=== PATIENT | female | born 1995 | race Hispanic/Latino ===

== ENCOUNTER 2020-11-26 16:19 | Emergency (ER) | payer SELFPAY ==
--- OUTSIDE RECORDS SUMMARY | 2020-11-26 16:21 | XMS REPORT | Continuity of Care Document ---
:1995 Author Organization [facility] t Address [address] [place] [address] Care Team Providers Name Role Phone Stone Rojo DO Attending Clinician Lenka MEZA L Attending Clinician Payers Payer Name Policy Type Policy Number Effective Date Expiration Date S ource Problems This patient has no known problems. Allergies, Adverse Reactions, Alerts Allergy Allergy Status Severity Reaction(s) Onset Inactive Treating Comm ents Source Name Type Date Date Clinician No Known DA Active U [facility]- [facility] No Known DA Active U 2015-06 [facility] 0-30 [facility] 00:00: e 00 [facility] Center Medications This patient has no known medications. Procedures This patient has no known procedures. Encounters Start End Encounter Admission Attending Care Care Encounter Source Date/Time Date/Time Type Type Clinicians Facility Department ID 2020-09-08 2020-09-08 Patient DAR Rojo [id number] 00:00:00 00:00:00 Outreach Carmelo BARR [id number] Stone [facility] [id number] BENJAMIN [id number] 2020-03-13 2020-03-13 Office Adum, [facility] [id number] 13:59:31 15:02:02 Visit Carie Alfaro [id number] Dionicio [id number] Najma [id number] nal [address] Building Results Test Description Test Time Test Comments Results Result Comments Source URINALYSIS COMPLETE 2018-12-11 17:34:00 Test Item Value Reference Range Interpretation Comme nts UA COLOR (test code = COLU) YELLOW YELLOW UA APPEARANCE (test code = APPU) CLEAR CLEAR UA GLUCOSE DIPSTICK (test code = DGLUU) NEGATIVE mg/dL NEGATIVE UA BILIRUBIN DIPSTICK (test code = BILU) NEGATIVE mg/dL NEGATIVE UA KETONE DIPSTICK (test code = KETU) 10 (1+) mg/dL NEGATIVE A UA SPECIFIC GRAVITY (test code = SGU) 1.032 1.001-1.035 UA BLOOD DIPSTICK (test code = POLI) 0.03 mg/dL (Trace) mg/dL NEGATI VE A UA PH DIPSTICK (test code = BRENNAN) 6.0 5.0-8.0 UA PROTEIN DIPSTICK (test code = PROU) 20 (Trace) mg/dL NEGATIVE A UA UROBILINIOGEN DIPSTICK (test code = URO) Normal mg/dL NEGATIVE UA NITRITE DIPSTICK (test code = AMENA) NEGATIVE NEGATIVE UA LEUKOCYTE ESTERASE W REFLEX (test code = NEGATIVE Phil/uL NEGATIV E LEUUR) UA WBC (test code = WBCU) 0-5 per HPF 0-5 UA RBC (test code = RBCU) 0-2 #/HPF 0-5 UA EPITHELIAL CELLS (test code = EPIU) MODERATE per HPF FEW UA BACTERIA (test code = BACU) FEW #/HPF NONE A UA MUCUS (test code = MUCU) MANY #/LPF FEW A Urine Source? Clean CatchURINALYSIS [id number] 17:17:00 Test Item Value Reference Range Interpretation Comments UA COLOR (test code = YELLOW YELLOW COLU) UA APPEARANCE (test code CLEAR CLEAR = APPU) UA GLUCOSE DIPSTICK (test NEGATIVE mg/dL NEGATIVE code = DGLUU) UA BILIRUBIN DIPSTICK NEGATIVE mg/dL NEGATIVE (test code = BILU) UA KETONE DIPSTICK (test 10 (1+) mg/dL NEGATIVE A code = KETU) UA SPECIFIC GRAVITY (test 1.032 1.001-1.035 code = SGU) UA BLOOD DIPSTICK (test 0.03 mg/dL (Trace) NEGATIVE A code = POLI) mg/dL UA PH DIPSTICK (test code 6.0 5.0-8.0 = BRENNAN) UA PROTEIN DIPSTICK (test 20 (Trace) mg/dL NEGATIVE A code = PROU) UA UROBILINIOGEN DIPSTICK Normal mg/dL NEGATIVE (test code = URO) UA NITRITE DIPSTICK (test NEGATIVE NEGATIVE code = AMENA) UA LEUKOCYTE ESTERASE W NEGATIVE Phil/uL NEGATIVE REFLEX (test code = LEUUR) UA WBC (test code = WBCU) per HPF 0-5 UA RBC (test code = RBCU) per HPF 0-5 UA EPITHELIAL CELLS (test per HPF Few code = EPIU) UA BACTERIA (test code = per HPF NONE BACU) Urine Source? Clean Catch- DUP AB/PEL/SC [id number] 16:46:00 Name: DARRELL TURCIOS [facility] : 1995 Age/S: 23 / F [address] [facility] Unit #: [id number] Loc: [place] [address] Phys: Maryan Lay NP Acct: [id number] Dis Date: Status: REG ER PHONE #: [phone] Exam Date: 12/11/2018 1630 FAX #: [phone] Reason: PELVIC PAIN EXAMS: CPTCODE: [id number] DUP AB/PEL/SC COMP [id number] REASON FOR E XAM: VAGINAL BLEEDING/PELVIC PAIN EXAM ORDER DATE: 12/11/2018 4:05 PM Attending Jt: Maryan Lay NP PROCEDURE: - US PREG 1ST TRIMTR, - DUP AB/PEL/SC COMP FINDINGS: The transabdominal ultrasound shows the uterus measured 8.1 x 7.3 cm. The ovaries were not seen on the transabdominal exam. No evidence of free fluid or adnexal mass on the transabdominal exam. A single IUP with mean gestational sac diameter of 5.4 cm (12 week 0 day). The average crown-rump length measurement is 3.7 cm (10 week 4 day. Fetalheart rate is 1 69 bpm. The right ovary measured 2.7 x 1.9 cm. The left ovary measured 2.9 x 1.9 cm. Unremarkable ovarian flow is seen. Duplex scans of the ovarian arteries were performed. Bray scale images were supplemented with color-flow Doppler. Doppler flow velocity analysis (duplex Doppler) was performed. No fluid seen in the cul-de-sac. IMPRESSION: Single viable IUP with estimated sonographic age of 11 weeks 2 days +/-0 weeks 6 days. Estimated delivery date is 06/30/2019 at 1645 Reported and signed by: Jeff Valentin M.D. CC: Maryan Lay NP; Mainor Raygoza MD Technologist: Susy Bonilla RDMS Trnhib Date/Time: 12/11/2018 (1645) t.[email or web address] Orig Print D/T: S: 12/11/2018 (7073) Probe: PAGE 1 Signed Report- US PREG 1ST [id number] 16:46:00 Name: DARRELL TURCIOS [facility] : 1995 Age/S: 23 / F [address] [facility] Unit #: [id number] Loc: [place] [address] Phys: Maryan Lay NP Acct: [id number] Dis Date: Status: REG ER PHONE #: [phone] Exam Date: 12/11/2018 1630 FAX #: [phone] Reason: VAGINALBLEEDING/PELVIC PAIN EXAMS: CPTCODE: [id number] US PREG 1ST TRIMTR [id number] REASON FOR E XAM: VAGINAL BLEEDING/PELVIC PAIN EXAM ORDER DATE: 12/11/2018 4:05 PM Attending Jt: Maryan Lay NP PROCEDURE: - US PREG 1ST TRIMTR, - DUP AB/PEL/SC COMP FINDINGS: The transabdominal ultrasound shows the uterus measured 8.1 x 7.3 cm. The ovaries were not seen on the transabdominal exam. No evidence of free fluid or adnexal mass on the transabdominal exam. A single IUP with mean gestational sac diameter of 5.4 cm (12 week 0 day). The average crown-rump length measurement is 3.7 cm (10 week 4 day. Fetalheart rate is 1 69 bpm. The right ovary measured 2.7 x 1.9 cm. The left ovary measured 2.9 x 1.9 cm. Unremarkable ovarian flow is seen. Duplex scans of the ovarian arteries were performed. Bray scale images were supplemented with color-flow Doppler. Doppler flow velocity analysis (duplex Doppler) was performed. No fluid seen in the cul-de-sac. IMPRESSION: Single viable IUP with estimated sonographic age of 11 weeks 2 days +/-0 weeks 6 days. Estimated delivery date is 06/30/2019 at 1646 Reported and signed by: Jeff Valentin M.D. CC: Maryan Lay NP; Mainor Raygoza MD Technologist: Susy Bonilla RDMS Trnhib Date/Time: 12/11/2018 (1645) [email or web address] Orig Print D/T: S: 12/11/2018 (1648) Probe: PAGE 1 Signed ReportHCG SERUM [id number] 16:18:00 Test Item Value Reference Range Interpretation Comments HCG SERUM BETA 74033.0 mIU/mL 0-3 H Interfering substances (test code = present in the serum of HCG) somepatients ma y cause a false-positiv e result in this assay.Questiona ble elevations in s elan hCG should be confi rmedwith a urine hCG. Monahan spected Trophoblastic N eoplasms shouldnot be di agnosed based on serun hCG/beta hCG alone. They must be confirmed by cl inical history and tis belkis diagnosis.INTER PRETATIO N:B-HCG LEVELS <5 SHOULD BE CONSI DERED "NEGATIVE." *WH EN BODERLINE RESUL TS ARE ENCOUNTERED,PAT IENT SAMPLESSHOULD B E REDRAWN 48 HOUR S. 0-1 WEEKS AFTER CONCEPTION 5-50 MIU/ ML1-2 WEEKS AFTER CON CEPTION 50- 500 MIU/ML2-3 WEEKS AFTER CONCEPTION 100 -5,000 MIU /ML3-4 WEEKS AFTER CON CEPTION 500- 10,000 MIU/ML4-5 WEEKS AFTER CONCEPTION 1000 -50,000 MIU/ML5-6 WEEKS AFTER CONCEPTION 10,000-100,000 MIU/ML6-8 WEEKS AFTER CONCEPTION 15,000- 200,000 MIU/ML2-3 MONTH S AFTER CONCEPTION 10,000-100,000 MIU/ML BASIC METABOLIC [id number] 14:59:00 Test Item Value Reference Range Interpretation Comments SODIUM (test code = 139 mmol/L 136-145 N NA) POTASSIUM (test code 3.9 mmol/L 3.5-5.1 N = K) CHLORIDE (test code = 109.0 mmol/L 98-107 H CL) CARBON DIOXIDE (test 22.0 mmol/L 21-32 N code = CO2) ANION GAP (test code 11.9 10-20 N = GAP) GLUCOSE (test code = 86 mg/dL 74-106 N GLU) BLOOD UREA NITROGEN 11 mg/dL 7-18 N (test code = BUN) GLOMERULAR FILTRATION > 60 mL/min >=60 Estima suma GFR by RATE (test code = using Jan fied MDRD GFR) formula.Chronic kidney disease is defined as eith er kidney damageor GFR <60 mL/min/1.73 m2 for >3 months. CREATININE (test code 0.50 mg/dL 0.55-1.02 L Note change in = CREAT) reference range due to change in reagent. BUN/CREATININE RATIO 22.0 10-20 H (test code = BUN/CREA) CALCIUM (test code = 8.6 mg/dL 8.5-10.1 N CA) HCG SERUM [id number] 14:59:00 Test Item Value Reference Range Interpretation Comments HCG SERUM QUAL (test POSITIVE NEGATIVE A This HC GQL test is NOT code = HCGQL) applicable for MALE patients.Check with nurse about probable order error.If Tumor Marker Test needed, nu rse should order test "HCG TU"(Test #[id number])---- - [id number] 14:59:00 Test Item Value Reference Range Interpretation Comments TROPONIN-I (test code = TROPI) <0.015 ng/mL 0-0.045 N BASIC METABOLIC [id number] 14:53:00 Test Item Value Reference Range Interpretation Comments SODIUM (test code = NA) 139 mmol/L 136-145 N POTASSIUM (test code = K) 3.9 mmol/L 3.5-5.1 N CHLORIDE (test code = CL) 109.0 mmol/L 98-107 H CARBON DIOXIDE (test code = CO2) mmol/L 21-32 ANION GAP (test code = GAP) 10-20 GLUCOSE (test code = GLU) mg/dL 74-106 BLOOD UREA NITROGEN (test code = mg/dL 7-18 BUN) GLOMERULAR FILTRATION RATE (test mL/min >=60 code = GFR) CREATININE (test code = CREAT) mg/dL 0.55-1.02 BUN/CREATININE RATIO (test code 10-20 = BUN/CREA) CALCIUM (test code = CA) mg/dL 8.5-10.1 HCG SERUM [id number] 14:53:00 Test Item Value Reference Range Interpretation Comments HCG SERUM QUAL (test POSITIVE NEGATIVE A This HC GQL test is NOT code = HCGQL) applicable for MALE patients.Check with nurse about probable order error.If Tumor Marker Test needed, nu rse should order test "HCG TU"(Test #550.98530)---- - [id number] 14:53:00 Test Item Value Reference Range Interpretation Comments TROPONIN-I (test code = TROPI) ng/mL 0-0.045 BASIC METABOLIC [id number] 14:51:00 Test Item Value Reference Range Interpretation Comments SODIUM (test code = NA) 139 mmol/L 136-145 N POTASSIUM (test code = K) 3.9 mmol/L 3.5-5.1 N CHLORIDE (test code = CL) 109.0 mmol/L 98-107 H CARBON DIOXIDE (test code = CO2) mmol/L 21-32 ANION GAP (test code = GAP) 10-20 GLUCOSE (test code = GLU) mg/dL 74-106 BLOOD UREA NITROGEN (test code = mg/dL 7-18 BUN) GLOMERULAR FILTRATION RATE (test mL/min >=60 code = GFR) CREATININE (test code = CREAT) mg/dL 0.55-1.02 BUN/CREATININE RATIO (test code 10-20 = BUN/CREA) CALCIUM (test code = CA) mg/dL 8.5-10.1 HCG SERUM [id number] 14:51:00 Test Item Value Reference Range Interpretation Comments HCG SERUM QUAL (test code = HCGQL) NEGATIVE [id number] 14:51:00 Test Item Value Reference Range Interpretation Comments TROPONIN-I (test code = TROPI) ng/mL 0-0.045 CBC W/O [id number] 14:44:00 Test Item Value Reference Range Interpretation Comments WHITE BLOOD CELL (test code = K/mm3 4.5-12.5 WBC) RED BLOOD CELL (test code = RBC) mill/mm3 3.7-5.2 HEMOGLOBIN (test code = HGB) 12.7 gram/dL 11.5-15.5 N HEMATOCRIT (test code = HCT) % 36.0-46.0 MEAN CELL VOLUME (test code = fL 80-98 MCV) MEAN CELL HGB (test code = MCH) picogram 27.0-33.0 MEAN CELL HGB CONCETRATION (test gram/dL 33.0-36.0 code = MCHC) RED CELL DISTRIBUTION WIDTH % 11.6-16.2 (test code = RDW) PLATELET COUNT (test code = PLT) K/mm3 150-450 MEAN PLATELET VOLUME (test code fL 6.7-11.0 = MPV) CBC W/O [id number] 14:44:00 Test Item Value Reference Range Interpretation Comments WHITE BLOOD CELL (test code = 8.8 K/mm3 4.5-12.5 N WBC) RED BLOOD CELL (test code = 4.11 mill/mm3 3.7-5.2 N RBC) HEMOGLOBIN (test code = HGB) 12.7 gram/dL 11.5-15.5 N HEMATOCRIT (test code = HCT) 34.8 % 36.0-46.0 L MEAN CELL VOLUME (test code = 84.7 fL 80-98 N MCV) MEAN CELL HGB (test code = MCH) 30.9 picogram 27.0-33.0 N MEAN CELL HGB CONCETRATION 36.5 gram/dL 33.0-36.0 H (test code = MCHC) RED CELL DISTRIBUTION WIDTH 11.9 % 11.6-16.2 N (test code = RDW) PLATELET COUNT (test code = 267 K/mm3 150-450 N PLT) MEAN PLATELET VOLUME (test code 9.6 fL 6.7-11.0 N = MPV)
[2020-11-26 17:05] LABS: Absolute Lymphocytes (CBC) 1.8 K/uL (0.7-4.9); Basophils % 0.3 % (0-1.3); Lymphocytes % 13.1 % (15.3-44.8)
[2020-11-26 17:13] LABS: ALT/SGPT 22 U/L (12-78); AST/SGOT 13 U/L (15-37); Albumin 3.4 g/dL (3.4-5.0); Alkaline Phosphatase 109 U/L (45-117); BUN Blood Urea Nitrogen 8 mg/dL (7-18); Bicarbonate 23 mmol/L (21-32); Bilirubin Direct < 0.1 mg/dL (0-0.2); Bilirubin Total 0.2 mg/dL (0.2-1.0); Glucose Level 92 mg/dL (74-106); Lipase 132 U/L (73-393); Potassium 3.4 mmol/L (3.5-5.1); Protein, Total 8.1 g/dL (6.4-8.2); Sodium Level 139 mmol/L (136-145)
[2020-11-26 17:29] LABS: Urine Blood 2+ (Negative); Urine Glucose Negative (Negative); Urine Protein Trace (Negative); Urine Specific Gravity >=1.030 (1.005-1.030); Urine pH 5.5 (5.0-7.0)
[2020-11-26 18:25] LABS: Urine Specific Gravity/Preg >1.030 (1.005-1.030)
--- NOTE | 2020-11-26 18:36 | RAD REPORT ---
EXAM DESCRIPTION: CT - Abdomen Pelvis W Contrast - 11/26/2020 6:20 pm CLINICAL HISTORY: Abdominal pain COMPARISON: none. TECHNIQUE: Computed axial tomography of the abdomen pelvis was obtained. 100 cc Isovue-300 was admin istered intravenously. Oral contrast was not requested which limits evaluation of bowel. All CT scans are performed using dose optimization technique as appropriate and may include automated exposure control or mA/KV adjustment according to patient size. FINDINGS: The liver, spleen, pancreas, adrenal and kidneys appear unremarkable. There is no evidence of diverticulitis. Normal appendix. The wall of most of the colon appears mildly thickened 2.3 centimeter left ovarian cyst without significant free fluid. Retroverted uterus IMPRESSION: Apparent thickening of the wall of most of the colon probably a mild colitis
--- NOTE | 2020-11-26 18:56 | EDPHYS ---
Physician Documentation [facility] Name: Camilla Sawant Age: 25 yrs Sex: Female : 1995 Arrival Date: 11/26/2020 Time: 16:22 Bed 15 Private MD: ED Physician Ray White HPI: 11/26 18:19 This 25 yrs old Female presents to ER via Ambulatory with complaints of kdr Abdominal Pain. 18:19 The patient presents with abdominal pain in the lower abdomen, that is diffuse. Onset: kdr The symptoms/episode began/occurred acutely. Historical: - Allergies: 16:28 No Known Drug Allergies; tw2 - Home Meds: 16:28 None [Active]; tw2 - PSHx: 16:28 ; control implant; tw2 - Immunization history:: Adult Immunizations. - Social history:: Smoking status: . ROS: 18:51 Constitutional: Negative for fever, chills, and weight loss, Eyes: Negative for injury, kdr pain, redness, and discharge, Neck: Negative for injury, pain, and swelling, Cardiovascular: Negative for chest pain, palpitations, and edema, Respiratory: Negative for shortness of breath, cough, wheezing, and pleuritic chest pain, Back: Negative for injury and pain, : Negative for injury, bleeding, discharge, and swelling, MS/Extremity: Negative for injury and deformity, Skin: Negative for injury, rash, and discoloration, Neuro: Negative for headache, weakness, numbness, tingling, and seizure activity. Psych: Negative for depression, anxiety, suicide ideation, homicidal ideation, and hallucinations, Allergy/Immunology: Negative for hives, rash, and allergies, Endocrine: Negative for neck swelling, polydipsia, polyuria, polyphagia, and marked weight changes, Hematologic/Lymphatic: Negative for swollen nodes, abnormal bleeding, and unusual bruising. 18:51 Abdomen/GI: Positive for abdominal pain, nausea, abdominal distension, black/tarry stool, rectal pain, rectal bleeding, bowel incontinence, Negative for constipation, abdominal distension, anorexia, dysphagia, hematemesis. Exam: 18:51 Constitutional: This is a well developed, well nourished patient who is awake, alert, kdr and in no acute distress. Head/Face: Normocephalic, atraumatic. Eyes: Pupils equal round and reactive to light, extra-ocular motions intact. Lids and lashes normal. Conjunctiva and sclera are non-icteric and not injected. Cornea within normal limits. Periorbital areas with no swelling, redness, or edema. Neck: Trachea midline, no thyromegaly or masses palpated, and no cervical lymphadenopathy. Supple, full range of motion without nuchal rigidity, or vertebral point tenderness. No Meningismus. Chest/axilla: Normal chest wall appearance and motion. Nontender with no deformity. No lesions are appreciated. Cardiovascular: Regular rate and rhythm with a normal S1 and S2. No gallops, murmurs, or rubs. Normal PMI, no JVD. No pulse deficits. Respiratory: Lungs have equal breath sounds bilaterally, clear to auscultation and percussion. No rales, rhonchi or wheezes noted. No increased work of breathing, no retractions or nasal flaring. Back: No spinal tenderness. No costovertebral tenderness. Full range of motion. Skin: Warm, dry with normal turgor. Normal color with no rashes, no lesions, and no evidence of cellulitis. MS/ Extremity: Pulses equal, no cyanosis. Neurovascular intact. Full, normal range of motion. Neuro: Awake and alert, GCS 15, oriented to person, place, time, and situation. Cranial nerves II-XII grossly intact. Motor strength 5/5 in all extremities. Sensory grossly intact. Cerebellar exam normal. Normal gait. Psych: Awake, alert, with orientation to person, place and time. Behavior, mood, and affect are within normal limits. 18:51 Abdomen/GI: Inspection: abdomen appears normal, Bowel sounds: active, Palpation: soft, mild abdominal tenderness, in the abdomen diffusely. Vital Signs: 16:25 BP 128 / 83; Pulse 86; Resp 17; Temp 98.2(TE); Pulse Ox 99% on R/A; Weight 56.7 kg (R); tw2 Pain 5/10; 18:00 BP 127 / 88; Pulse 72; Resp 18; Pulse Ox 100% on R/A; tr6 MDM: 18:55 Patient medically screened. kdr 19:04 Data reviewed: vital signs, nurses notes, lab test result(s), radiologic studies. kdr Counseling: I had a detailed discussion with the patient and/or guardian regarding: the historical points, exam findings, and any diagnostic results supporting the discharge/admit diagnosis, lab results, radiology results, the need for outpatient follow up. 11/26 16:23 Order name: Basic Metabolic Panel; Complete Time: 17:59 kdr 11/26 16:23 Order name: CBC with Diff; Complete Time: 17:59 kdr 11/26 16:23 Order name: Hepatic Function; Complete Time: 17:59 kdr 11/26 16:23 Order name: Lipase; Complete Time: 17:59 kdr 11/26 16:23 Order name: IV Saline Lock; Complete Time: 16:50 kdr 11/26 16:23 Order name: Labs collected and sent; Complete Time: 16:50 kdr 11/26 17:29 Order name: Urine Dipstick-Ancillary; Complete Time: 17:59 EDSD 11/26 17:55 Order name: Urine --Ancillary (enter results); Complete Time: 18:52 bd 11/26 17:59 Order name: CT Abd/Pelvis - IV Contrast Only; Complete Time: 18:52 kdr Administered Medications: No medications were administered Disposition: 11/26/20 18:55 Discharged to Home. Impression: Abdominal and pelvic pain, Noninfective gastroenteritis and colitis, unspecified. - Condition is Stable. - Discharge Instructions: Abdominal Pain, Adult, Hiyc-zu-Rfce, Antibiotic Medicine, Ciso-nv-Hpxp, Colitis. - Prescriptions for Bentyl 20 mg Oral Tablet - take 1 tablet by ORAL route every 6 hours As needed As needed for cramping; 20 tablet. Cipro 500 mg Oral Tablet - take 1 tablet by ORAL route every 12 hours for 10 days; 20 tablet. Flagyl 500 mg Oral Tablet - take 1 tablet by ORAL route every 6 hours for 10 days; 40 tablet. Pepcid 20 mg Oral Tablet - take 1 tablet by ORAL route every 12 hours for 5 days; 10 tablet. - Medication Reconciliation Form, Thank You Letter form. - Follow up: Private Physician; When: 2 - 3 days; Reason: If symptoms return, Further diagnostic work-up, Recheck today's complaints, Continuance of care, Re-evaluation by your physician. - Problem is new. - Symptoms have improved. Signatures: Dispatcher [facility] Ray White MD MD kdr Nusrat Blevins RN RN tw2 Stefan Araujo, RN RN jb4 Corrections: (The following items were deleted from the chart) 16:25 16:25 Basic Metabolic Panel ordered. [facility] 16:25 16:25 CBC with Automated Diff ordered. [facility] 16:25 16:25 Liver (Hepatic) Function ordered. [facility] 16:25 16:25 Lipase ordered. [facility] 19:35 18:55 11/26/2020 18:55 Discharged to Home. Impression: Abdominal and pelvic pain; jb4 Noninfective gastroenteritis and colitis, unspecified. Condition is Stable. Forms are Medication Reconciliation Form, Thank You Letter, Antibiotic Education, Prescription Opioid Use. Follow up: Private Physician; When: 2 - 3 days; Reason: If symptoms return, Further diagnostic work-up, Recheck today's complaints, Continuance of care, Re-evaluation by your physician. Problem is new. Symptoms have improved. kdr
--- NOTE | 2020-11-26 18:56 | ER ---
Nurse's Notes [facility] Name: Camilla Sawant Age: 25 yrs Sex: Female : 1995 Arrival Date: 11/26/2020 Time: 16:22 Bed 15 Private MD: Diagnosis: Abdominal and pelvic pain;Noninfective gastroenteritis and colitis, unspecified Presentation: 11/26 16:25 Chief complaint: Patient states: my stomach has been messing with me like sharp pains tw2 since Monday. i thought it would go away but it steady stayed. then i have to use the bathroom. so whenever i stand up it makes me have to want to have a bowel movement. i have had some diarrhea. my kids also had a stomach bug but my mom thinks its something serious. Coronavirus screen: At this time, the client does not indicate any symptoms associated with coronavirus-19. Ebola Screen: Patient denies travel to an Ebola-affected area in the 21 days before illness onset. Initial Sepsis Screen: Does the patient meet any 2 criteria? No. Patient's initial sepsis screen is negative. Does the patient have a suspected source of infection? No. Patient's initial sepsis screen is negative. Risk Assessment: Do you want to hurt yourself or someone else? Patient reports no desire to harm self or others. Onset of symptoms was November 26, 2020. 16:25 Method Of Arrival: Ambulatory tw2 16:25 Acuity: WILMER 3 tw2 Triage Assessment: 16:28 General: Appears in no apparent distress. Behavior is calm, cooperative, appropriate tw2 for age. Pain: Complains of pain in abdomen. GI: Reports cramping, nausea. Historical: - Allergies: 16:28 No Known Drug Allergies; tw2 - Home Meds: 16:28 None [Active]; tw2 - PSHx: 16:28 ; control implant; tw2 - Immunization history:: Adult Immunizations. - Social history:: Smoking status: . Screenin:37 Abuse screen: Denies threats or abuse. Denies injuries from another. Nutritional tr6 screening: No deficits noted. Tuberculosis screening: No symptoms or risk factors identified. Fall Risk None identified. Assessment: 17:22 General: Appears in no apparent distress. comfortable, Behavior is calm, cooperative, tr6 appropriate for age. Pain: Complains of pain in abdominal cramping. Neuro: No deficits noted. Cardiovascular: No deficits noted. Respiratory: No deficits noted. GI: No deficits noted. Bowel sounds present X 4 quads. Abd is soft and non tender Reports lower abdominal pain, upper abdominal pain, diarrhea. : No deficits noted. EENT: No deficits noted. Derm: No deficits noted. Musculoskeletal: No deficits noted. 18:36 Reassessment: pt resting comfortably in bed, pending CT results. tr6 19:35 Reassessment: Patient appears in no apparent distress at this time. Patient and/or jb4 family updated on plan of care and expected duration. Pain level reassessed. Patient is alert, oriented x 3, equal unlabored respirations, skin warm/dry/pink. Vital Signs: 16:25 BP 128 / 83; Pulse 86; Resp 17; Temp 98.2(TE); Pulse Ox 99% on R/A; Weight 56.7 kg (R); tw2 Pain 5/10; 18:00 BP 127 / 88; Pulse 72; Resp 18; Pulse Ox 100% on R/A; tr6 ED Course: 16:22 Patient arrived in ED. mr 16:23 Ray White MD is Attending Physician. kdr 16:27 Triage completed. tw2 16:28 Arm band placed on. tw2 16:33 Kennedi Orellana, JJ is Primary Nurse. tr6 16:50 No provider procedures requiring assistance completed. Inserted saline lock: 20 gauge tr6 in left antecubital area, using aseptic technique. Blood collected. 18:20 CT Abd/Pelvis - IV Contrast Only In Process Unspecified. EDMS 18:37 Patient has correct armband on for positive identification. Bed in low position. Call tr6 light in reach. Side rails up X 1. Pulse ox on. NIBP on. Door closed. Warm blanket given. Diet: Patient is NPO. 19:35 IV discontinued, intact, bleeding controlled, No redness/swelling at site. Pressure jb4 dressing applied. Administered Medications: No medications were administered Outcome: 18:55 Discharge ordered by . kdr 19:35 Discharged to home ambulatory. jb4 19:35 Condition: stable 19:35 Discharge instructions given to patient, Instructed on discharge instructions, follow up and referral plans. medication usage, Demonstrated understanding of instructions, follow-up care, medications, Prescriptions given X 4. 19:35 Patient left the ED. jb4 Signatures: Dispatcher [employer] EDMS Ray White MD MD [facility] Giovana Rai mr Nusrat Blevins RN RN tw2 Stefan Araujo RN RN jb4 Kennedi Orellana RN RN tr6
[2020-11-26 19:50] VITALS: TEMP 98.2
[2020-11-26 19:51] VITALS: BP 127/88; O2SAT 100
== END 2020-11-26 19:35 | disposition home or self-care (01) ==
LOC: ER 16:19
DX: K52.9 Noninfective gastroenteritis and colitis, unspecified (principal)
CPT/HCPCS: 36415; 74177; 80048; 80076; 81003; 81025; 83690; 85025; 99284; Q9967

== ENCOUNTER 2023-01-23 15:41 | Emergency (ER) | payer OTHER, SELFPAY ==
--- OUTSIDE RECORDS SUMMARY | 2023-01-23 15:57 | XMS REPORT | Continuity of Care Document ---
:1995 Author Organization [facility] t Address [address] [place] [address] Care Team Providers Name Role Phone Andres Alcala Attending Clinician Unavailable Carmelo Rojo DO Attending Clinician Carie Og MD Attending Clinician CARIE OG Attending Clinician Unavailable Doctor Unassigned, [place] Attending Clinician Unavailable Yumiko Hernandez CNM Attending Clinician YUMIKO HERNANDEZ Attending Clinician Unavailable Kira Cedillo CNM Attending Clinician Lynnette Wright RN Attending Clinician Unavailable Steffanie Jain Attending Clinician Physician, No Primary or Family Admitting Clinician Unavaila ble Payers Payer Name Policy Type Policy Number Effective Date Expiration Date S ource Problems Condition Condition Condition Status Onset Resolution Last Treating Co mments Source Name Details Category Date Date Treatment Clinician Date Iron Iron Disease Active Univers deficiency deficiency 2-28 it y of anemia anemia 00:00: [place] 00 Medical Branch Lipids Lipids Disease Active Univers abnormal abnormal 2-28 ity of 00:00: [place] [address] Medical Branch Nexplanon Nexplanon Disease Active Uni vers insertion insertion 2-25 ity of 00:00: [place] [address] Medical Branch Disease Active Uni vers examinatio examinatio 2-25 it y of n or test, n [place] test, 00:[place] negative negative 00 Medica l result result Branch Anemia, Anemia, Disease Active Univers 1-28 it y of 00:00: [place] [address] Medical Branch Labor and Labor and Disease Active Uni vers delivery, delivery, 1-03 ity of indication [place] 00:[place] for care for care 00 Medica l Branch Anemia of Anemia of Disease Active Uni vers mother in mother in 1-02 ity of , , 00:00: [place] antepartum antepartum 00 Me dical Branch BMI BMI Disease Active 2018-06 Univers 27.0-27.9, 27.0-27.9, 0-22 it y of adult adult 00:00: [facility] Branch Poor Poor Disease Active 2018-06 U nivers growth growth 0-16 [place] affecting [place] management management 00 Me dical of mother of mother Bran ch in second in second trimester trimester Back pain Back pain Disease Active 2018-06 Uni vers affecting affecting 0-10 [place] of [place] in second in second 00 Medi ginny trimester trimester Bran ch Previous Previous Disease Active Overview: Un ranjit 9-16 LTCS per ity of delivery delivery 00:00: op report [place] G as affecting affecting 00 Medi ginny , , Br anch antepartum antepartum Vaginal Vaginal Disease Active 2018- Univers discharge discharge 9-16 ity of during during 00:00: [place] 00 Medi ginny in second in second Bran ch trimester trimester Spontaneou Spontaneou Disease Active 2016-06 U nivers s vaginal s vaginal 1-14 ity of delivery delivery 00:00: [place] [address] Medical Branch Oligohydra Oligohydra Disease Active 2016-06 U nivers mnios mnios 1-12 ity of antepartum antepartum 00:00: [place] , third , third 00 Medical trimester, trimester, Br anch not not applicable applicable or or unspecifie unspecifie d fetus d fetus 38 weeks 38 weeks Disease Active 2016-06 Unive rs gestation gestation 1-11 ity of of of 00:00: [place] 00 [facility] High-risk High-risk Disease Active Uni vers 9-08 ity of in third in third 00:00: [place] trimester trimester 00 [facility] Anemia of Anemia of Disease Active Uni vers mother in mother in 02-24 ity of , , 00:[place] antepartum antepartum 00 Me dical Branch UTI in UTI in Disease Active Univers , , 10-14 it y of antepartum antepartum 00:00: [place] , first , first 00 Medical trimester trimester Bran ch Disease Active U nivers care and care and 03-14 ity of examinatio examinatio 00:00[place] n of n of 00 Medical lactating lactating Bran ch mother mother Allergies, Adverse Reactions, Alerts Allergy Allergy Status Severity Reaction(s) Onset Inactive Treating Comm ents Source Name Type Date Date Clinician No Known DA Active U 2018- [facility] All[facility]ie 6-25 Clear s 00:00: [place] 00 [facility] No Known DA Active U 2019-0 [facility] [place] [facility] No Known DA Active U 2015-06 [facility]ie 0-30 [place] [facility] NO KNOWN Drug Active Univers ALLERGIE Class ity of S [facility] Social History Social Habit Start Date Stop Date Quantity Comments Source ASSERTION 2018-10-07 University of 00:00:00 [facility] Branch Exposure to Not sure University of SARS-CoV-2 [facility] (event) Branch Tobacco use and 2020-03-15 2020-03-15 Never used Universit y of exposure 00:00:00 00:00:00 [facility] Branch Alcohol intake 2020-03-15 2020-03-15 Current drinker Unive rsity of 00:00:00 00:00:00 of alcohol [facility] (finding) Branch History SDOH 2020-03-13 2020-03-13 2 University o f Alcohol Frequency 00:00:00 00:00:00 [place] M edical Branch History SDPR 2020-03-13 2020-03-13 99 [place] o f Alcohol Std 00:00:00 00:00:00 [place] Medical Drinks Branch History [facility] 2020-03-13 2020-03-13 99 [place] o f Alcohol Binge 00:00:00 00:00:00 [place] Medic al Branch Alcohol Comment 2019-03-04 2019-03-04 Occassionally. Unive rsity of 00:00:00 00:00:00 07/2018 last [place] Medica l time. Branch Sex Assigned At [birth year] Universit y of 00:00:00 00:00:00 [place] [facility] Branch Smoking Status Start Date Stop Date Source Never smoker [facility] Medical Branch Medications Ordered Filled Start Stop Current Ordering Indication Dosage Frequency Signature Comments Components Source Medication Medication Date Date Medication? Clinician (SIG) Name Name etonogestre 2020-0 Yes 68mg 68 mg by Un ranjit L 9-25 Subdermal ity of (NEXPLANON) 19:56: route once [place] 68 mg 59 now. Medical implant Branch etonogestre 20200 Yes 68mg 68 mg by Un ranjit L 9-25 Subdermal ity of (NEXPLANON) 19:56: route once [place] 68 mg 59 now. Medical implant Branch etonogestre 2020-0 Yes 68mg 68 mg by Un ranjit L 9-25 Subdermal ity of (NEXPLANON) 19:56: route once [place] 68 mg 59 now. Medical implant Branch ferrous 0 Yes [id number] 325mg Take 1 Uni vers sulfate 325 2-28 tablet by ity of mg (65 mg 00:00: mouth [place] iron) 00 daily. Medical tablet Branch ferrous 2020-0 Yes [id number] 325mg Take 1 Uni vers sulfate 325 2-28 tablet by ity of mg (65 mg 00:00: mouth [place] iron) 00 daily. Medical tablet Branch ferrous 2020-0 Yes [id number] 325mg Take 1 Uni vers sulfate 325 2-28 tablet by ity of mg (65 mg 00:00: mouth [place] iron) 00 daily. Medical tablet Branch ferrous 2020-0 Yes [id number] 325mg Take 1 Uni vers sulfate 325 2-28 tablet by ity of mg (65 mg 00:00: mouth [place] iron) 00 daily. Medical tablet Branch ferrous Yes [id number] 325mg Take 1 Uni vers sulfate 325 2-28 tablet by ity of mg (65 mg 00:00: mouth [place] iron) 00 daily. Medical tablet Branch etonogestre 2019- No 68mg Unive rs l 08-13 ity of (NEXPLANON) 18:30: 19:22 [place] implant 68 00 :00 Medical mg Branch etonogestre 2019- No 68mg 68 mg, Uni vers l 08-13 Subdermal, ity of (NEXPLANON) 18:30: 19:22 ONCE NOW, [place] implant 68 00 :00 1 dose, Medica l mg Tue Branch 08/13/19 at 1230, Routine
Use approved by: [employer] SAL[employer] MANAGER etonogestre 2019- No 68mg Unive rs l 08-13 ity of (NEXPLANON) 18:30: 19:22 [place] implant 68 00 :00 Medical mg Branch etonogestre 2019- No 68mg 68 mg, Uni vers l 08-13 Subdermal, ity of (NEXPLANON) 18:30: 19:22 ONCE NOW, [place] implant 68 00 :00 1 dose, Medica l mg Tue Branch 08/13/19 at 1230, Routine
Use approved by: [employer] SAL[employer] MANAGER Yes [id number] 1{packe Take 1 Univers vit 1-28 t} Packet by ity of 33-iron-fol 00:00: mouth [place] ic-dha 00 daily. Medical (SELECT-OB Branch + DHA) 29 mg iron-1 mg -250 mg combo pack Iron, Cbn & Yes [id number] 1{tbl} Take 1 Univers Gluc-FA-B12 1-28 tablet by ity of -C-DSS 00:00: mouth [place] (FERRALET 00 daily. Medical 90 Branch DUAL-IRON DELIVERY) 90-1-12-50 mg-mg-mcg-m g per tablet buPROPion Yes [id number] 150mg Take 1 U nivers SR 1-28 tablet by ity of (WELLBUTRIN 00:00: mouth 2 [place] G as SR) 150 mg 00 (two) Medical SR tablet times Branch daily. 2020-0 Yes [id number] 1{packe Take 1 Univers vit 1-28 t} Packet by ity of 33-iron-fol 00:00: mouth [place] ic-dha 00 daily. Medical (SELECT-OB Branch + DHA) 29 mg iron-1 mg -250 mg combo pack Iron, Cbn & 2020-0 Yes [id number] 1{tbl} Take 1 Univers Gluc-FA-B12 1-28 tablet by ity of -C-DSS 00:00: mouth [place] (FERRALET [address] DUAL-IRON DELIVERY) 90-1-12-50 mg-mg-mcg-m g per tablet buPROPion 2020-0 Yes [id number] 150mg Take 1 U nivers SR 1-28 tablet by ity of (WELLBUTRIN 00:00: mouth 2 [place] as SR) 150 mg 00 (two) Medical SR tablet times Branch daily. 2020-0 Yes [id number] 1{packe Take 1 Univers vit 1-28 t} Packet by ity of 33-iron-fol 00:00: mouth [place] ic-dha 00 daily. Medical (SELECT-OB Branch + DHA) 29 mg iron-1 mg -250 mg combo pack Iron, Cbn & 2020-0 Yes [id number] 1{tbl} Take 1 Univers Gluc-FA-B12 1-28 tablet by ity of -C-DSS 00:00: mouth [place] (FERRALET [address] DUAL-IRON DELIVERY) 90-1-12-50 mg-mg-mcg-m g per tablet buPROPion 2020-0 Yes [id number] 150mg Take 1 U nivers SR 1-28 tablet by ity of (WELLBUTRIN 00:00: mouth 2 [place] as SR) 150 mg 00 (two) Medical SR tablet times Branch daily. 2020-0 Yes [id number] 1{packe Take 1 Univers vit 1-28 t} Packet by ity of 33-iron-fol 00:00: mouth [place] ic-dha 00 daily. Medical (SELECT-OB Branch + DHA) 29 mg iron-1 mg -250 mg combo pack Iron, Cbn & 2020-0 Yes [id number] 1{tbl} Take 1 Univers Gluc-FA-B12 1-28 tablet by ity of -C-DSS 00:00: mouth [place] (FERRALET [address] DUAL-IRON DELIVERY) 90-1-12-50 mg-mg-mcg-m g per tablet buPROPion 2020-0 Yes [id number] 150mg Take 1 U nivers SR 1-28 tablet by ity of (WELLBUTRIN 00:00: mouth 2 [place] as SR) 150 mg 00 (two) Medical SR tablet times Branch daily. 2020-0 Yes [id number] 1{packe Take 1 Univers vit 1-28 t} Packet by ity of 33-iron-fol 00:00: mouth [place] ic-dha 00 daily. Medical (SELECT-OB Branch + DHA) 29 mg iron-1 mg -250 mg combo pack Iron, Cbn & 2020-0 Yes [id number] 1{tbl} Take 1 Univers Gluc-FA-B12 1-28 tablet by ity of -C-DSS 00:00: mouth [place] (FERRALET [address] DUAL-IRON DELIVERY) 90-1-12-50 mg-mg-mcg-m g per tablet buPROPion 2020-0 Yes [id number] 150mg Take 1 U nivers SR 1-28 tablet by ity of (WELLBUTRIN 00:00: mouth 2 [place] as SR) 150 mg 00 (two) Medical SR tablet times Branch daily. 2020-0 Yes [id number] 1{packe Take 1 Univers vit 1-28 t} Packet by ity of 33-iron-fol 00:00: mouth [place] ic-dha 00 daily. Medical ([facility] Branch + DHA) 29 mg iron-1 mg -250 mg combo pack Iron, Cbn & 2020-0 Yes [id number] 1{tbl} Take 1 Univers Gluc-FA-B12 1-28 tablet by ity of -C-DSS 00:00: mouth [place] (FERRALET [address] DUAL-IRON DELIVERY) 90-1-12-50 mg-mg-mcg-m g per tablet buPROPion 2020-0 Yes [id number] 150mg Take 1 U nivers SR 1-28 tablet by ity of (WELLBUTRIN 00:00: mouth 2 [place] as SR) 150 mg 00 (two) Medical SR tablet times Branch daily. 2020-0 Yes [id number] 1{packe Take 1 Univers vit 1-28 t} Packet by ity of 33-iron-fol 00:00: mouth [place] ic-dha 00 daily. Medical (SELECT-OB Branch + DHA) 29 mg iron-1 mg -250 mg combo pack Iron, Cbn & 2020-0 Yes [id number] 1{tbl} Take 1 Univers Gluc-FA-B12 1-28 tablet by ity of -C-DSS 00:00: mouth [place] (FERRALET [address] DUAL-IRON DELIVERY) 90-1-12-50 mg-mg-mcg-m g per tablet buPROPion 2020-0 Yes [id number] 150mg Take 1 U nivers SR 1-28 tablet by ity of (WELLBUTRIN 00:00: mouth 2 [place] as SR) 150 mg 00 (two) Medical SR tablet times Branch daily. 2020-0 Yes [id number] 1{packe Take 1 Univers vit 1-28 t} Packet by ity of 33-iron-fol 00:00: mouth [place] ic-dha 00 daily. Medical ([facility] Branch + DHA) 29 mg iron-1 mg -250 mg combo pack Iron, Cbn & 2020-0 Yes [id number] 1{tbl} Take 1 Univers Gluc-FA-B12 1-28 tablet by ity of -C-DSS 00:00: mouth [place] (FERRALET [address] DUAL-IRON DELIVERY) 90-1-12-50 mg-mg-mcg-m g per tablet buPROPion 2020-0 Yes [id number] 150mg Take 1 U nivers SR 1-28 tablet by ity of (WELLBUTRIN 00:00: mouth 2 [place] as SR) 150 mg 00 (two) Medical SR tablet times Branch daily. 2020-0 Yes [id number] 1{packe Take 1 Univers vit 1-28 t} Packet by ity of 33-iron-fol 00:00: mouth [place] ic-dha 00 daily. Medical (SELECT-OB Branch + DHA) 29 mg iron-1 mg -250 mg combo pack Iron, Cbn & 2020-0 Yes [id number] 1{tbl} Take 1 Univers Gluc-FA-B12 1-28 tablet by ity of -C-DSS 00:00: mouth [place] (FERRALET [address] DUAL-IRON DELIVERY) 90-1-12-50 mg-mg-mcg-m g per tablet buPROPion 2020-0 Yes [id number] 150mg Take 1 U nivers SR 1-28 tablet by ity of (WELLBUTRIN 00:00: mouth 2 [place] as SR) 150 mg 00 (two) Medical SR tablet times Branch daily. docusate 2020-0 Yes [id number] 240mg Take 1 U nivers calcium 240 1-05 capsule by it y of mg capsule 00:00: mouth once [place] 00 daily as Medical needed for Branch Constipati on. HYDROcodone 2020-0 Yes [id number] 1{tbl} Take 1 Univers -acetaminop 1-05 tablet by ity of hen 5-325 00:00: mouth [place] mg tablet 00 every 6 Medical (six) Branch hours as needed for Pain (scale 4-6) (If uncontroll ed by Ibuprofen) . ibuprofen 2020-0 Yes [id number] 600mg Take 1 Univers 600 mg 1-05 tablet by ity of tablet 00:00: mouth [place] 00 every 6 Medical (six) Branch hours as needed for Pain (scale 1-3). simethicone 2020-0 Yes [id number] 160mg Take 2 Univers 80 mg 1-05 tablets by ity of chewable 00:00: mouth [place] tablet 00 after Medical meals and Branch at bedtime as needed for Gas. ibuprofen 2020-0 Yes [id number] 600mg Take 1 Univers 600 mg 1-05 tablet by ity of tablet 00:00: mouth [place] 00 every 6 Medical (six) Branch hours as needed for Pain (scale 1-3). ibuprofen 2020-0 Yes [id number] 600mg Take 1 Univers 600 mg 1-05 tablet by ity of tablet 00:00: mouth [place] 00 every 6 Medical (six) Branch hours as needed for Pain (scale 1-3). ibuprofen 2020-0 Yes [id number] 600mg Take 1 Univers 600 mg 1-05 tablet by ity of tablet 00:00: mouth [place] 00 every 6 Medical (six) Branch hours as needed for Pain (scale 1-3). ibuprofen 2020-0 Yes [id number] 600mg Take 1 Univers 600 mg 1-05 tablet by ity of tablet 00:00: mouth [place] 00 every 6 Medical (six) Branch hours as needed for Pain (scale 1-3). ibuprofen 2020-0 Yes [id number] 600mg Take 1 Univers 600 mg 1-05 tablet by ity of tablet 00:00: mouth [place] 00 every 6 Medical (six) Branch hours as needed for Pain (scale 1-3). ibuprofen 2020-0 Yes [id number] 600mg Take 1 Univers 600 mg 1-05 tablet by ity of tablet 00:00: mouth [place] 00 every 6 Medical (six) Branch hours as needed for Pain (scale 1-3). ibuprofen 2020-0 Yes [id number] 600mg Take 1 Univers 600 mg 1-05 tablet by ity of tablet 00:00: mouth [place] 00 every 6 Medical (six) Branch hours as needed for Pain (scale 1-3). ibuprofen 2020-0 Yes [id number] 600mg Take 1 Univers 600 mg 1-05 tablet by ity of tablet 00:00: mouth [place] 00 every 6 Medical (six) Branch hours as needed for Pain (scale 1-3). ibuprofen 2020-0 Yes [id number] 600mg Take 1 Univers 600 mg 1-05 tablet by ity of tablet 00:00: mouth [place] 00 every 6 Medical (six) Branch hours as needed for Pain (scale 1-3). docusate 2020-0 Yes [id number] 240mg Take 1 U nivers calcium 240 1-05 capsule by it y of mg capsule 00:00: mouth once [place] 00 daily as Medical needed for Branch Constipati on. HYDROcodone 2020-0 Yes [id number] 1{tbl} Take 1 Univers -acetaminop 1-05 tablet by ity of hen 5-325 00:00: mouth [place] mg tablet 00 every 6 Medical (six) Branch hours as needed for Pain (scale 4-6) (If uncontroll ed by Ibuprofen) . ibuprofen 2020-0 Yes [id number] 600mg Take 1 Univers 600 mg 1-05 tablet by ity of tablet 00:00: mouth [place] 00 every 6 Medical (six) Branch hours as needed for Pain (scale 1-3). simethicone 2020-0 Yes [id number] 160mg Take 2 Univers 80 mg 1-05 tablets by ity of chewable 00:00: mouth [place] tablet 00 after Medical meals and Branch at bedtime as needed for Gas. docusate 2020-0 2020- No [id number] 240mg Take 1 Univers calcium 240 1-05 -28 capsule by i ty of mg capsule 00:00: 00:00 mouth once [place] 00 :00 daily as Medical needed for Branch Constipati on. HYDROcodone 2020- No [id number] 1{tbl} Take 1 Univers -acetaminop 1-10 17-28 tablet by it y of hen 5-325 00:00: 00:00 mouth [place] mg tablet 00 :00 every 6 Medical (six) Branch hours as needed for Pain (scale 4-6) (If uncontroll ed by Ibuprofen) . simethicone 2020- No [id number] 160mg Take 2 Univers 80 mg -05 -28 tablets by ity of chewable 00:00: 00:00 mouth [place] tablet 00 :00 after Medical meals and Branch at bedtime as needed for Gas. 2018-06 Yes [id number] 1{packe Take 1 Univers vit 2-05 t} Packet by ity of 33-iron-fol 00:00: mouth [place] ic-dha 00 daily. Medical (SELECT-OB Branch + DHA) 29 mg iron-1 mg -250 mg combo pack 2018-06 Yes [id number] 1{packe Take 1 Univers vit 2-05 t} Packet by ity of 33-iron-fol 00:00: mouth [place] ic-dha 00 daily. Medical (SELECT-OB Branch + DHA) 29 mg iron-1 mg -250 mg combo pack 2018-06 2020- No [id number] 1{packe Take 1 Univers vit 2-05 -28 t} Packet by ity of 33-iron-fol 00:00: 00:00 [place] ic-dha 00 :00 daily. Medical (SELECT-OB Branch + DHA) 29 mg iron-1 mg -250 mg combo pack cyclobenzap 2018-06 Yes [id number] 10mg Take 1 Univers rine 10 mg 1-06 tablet by ity of tablet 00:00: mouth as [place] 00 needed for Medical Muscle Branch Spasms. cyclobenzap 2018-06 Yes [id number] 10mg Take 1 Univers rine 10 mg 1-06 tablet by ity of tablet 00:00: mouth as [place] 00 needed for Medical Muscle Branch Spasms. cyclobenzap 2018-06 2020- No [id number] 10mg Take 1 Univers rine 10 mg -06 -28 tablet by ity of tablet 00:00: 00:00 mouth as [place] 00 :00 needed for Medical Muscle Branch Spasms. metroNIDAZO 2019- No [id number] 500mg Take 1 Univers LE (FLAGYL) 03-06- tablet by it y of 500 mg 00:00: 04:59 mouth 2 [place] tablet 00 :00 (two) Medical times Branch daily for 7 days. Yes [id number] 1{packe Take 1 Univers vit 9-16 t} Packet by ity of 33-iron-fol 00:00: mouth [place] ic-dha 00 daily. Medical (SELECT-OB Branch + DHA) 29 mg iron-1 mg -250 mg combo pack Yes [id number] 1{packe Take 1 Univers vit 9-16 t} Packet by ity of 33-iron-fol 00:00: mouth [place] ic-dha 00 daily. Medical (SELECT-OB Branch + DHA) 29 mg iron-1 mg -250 mg combo pack 2016-06 Yes 1{tbl} Take 1 Unive rs vitamin 1-14 tablet by ity of w/FA tablet 00:00: mouth [place] 00 daily. Medical Branch docusate 2016-06 Yes 240mg Take 1 Univer s calcium 240 1-14 capsule by it y of mg capsule 00:00: mouth once [place] 00 daily as Medical needed for Branch Constipati on. ferrous 2016-06 Yes 325mg Take 1 Univers sulfate 325 1-14 tablet by ity of mg (65 mg 00:00: mouth 2 [place] iron) 00 (two) Medical tablet times Branch daily. ibuprofen 2016-06 Yes 600mg Take 1 Unive rs 600 mg 1-14 tablet by ity of tablet 00:00: mouth [place] 00 every 6 Medical (six) Branch hours as needed for Pain (scale 1-3) or Pain (scale 4-6) (Pain). Take with food or milk. HYDROcodone 2016-06 Yes 1{tbl} Take 1-2 Univers -acetaminop 1-14 tablets by it y of hen 5-325 00:00: mouth [place] mg tablet 00 every 6 Medical (six) Branch hours as needed for Pain (scale 4-6) (Pain scale above 4). 2016-06 2019- No 1{tbl} Take 1 Univ ers vitamin 1-14 09-16 tablet by ity of w/FA tablet 00:00: 00:00 [place] 00 :00 daily. Medical Branch docusate 2016-06- No 240mg Take 1 Unive rs calcium 240 07-02 capsule by i ty of mg capsule 00:00: 00:00 mouth once [place] 00 :00 daily as Medical needed for Branch Constipati on. ferrous 2016-06- No 325mg Take 1 Univer s sulfate 325 07-02 tablet by it y of mg (65 mg 00:00: 00:00 mouth [place] iron) 00 :00 (two) Medical tablet times Branch daily. ibuprofen 2016-06- No 600mg Take 1 Univ ers 600 mg 07-02 tablet by ity of tablet 00:00: 00:00 mouth [place] 00 :00 every 6 Medical (six) Branch hours as needed for Pain (scale 1-3) or Pain (scale 4-6) (Pain). Take with food or milk. HYDROcodone 2016-06- No 1{tbl} Take 1-2 Univers -acetaminop 07-02 tablets by i ty of hen 5-325 00:00: 00:00 mouth [place] mg tablet 00 :00 every 6 Medical (six) Branch hours as needed for Pain (scale 4-6) (Pain scale above 4). Immunizations Ordered Filled Immunization Date Status Comments [facility] e Immunization Name Name TDAP (ADACEL) 2019-04-24 Completed University of VACCINE 00:00:00 [facility] TDAP (ADACEL) 2019-04-24 Completed University of VACCINE 00:00:00 [facility] TDAP (ADACEL) 2019-04-24 Completed University of VACCINE 00:00:00 [facility] TDAP (ADACEL) 2019-04-24 Completed University of VACCINE 00:00:00 [facility] TDAP (ADACEL) 2019-04-24 Completed University of VACCINE 00:00:00 [facility] TDAP (ADACEL) 2019-04-24 Completed University of VACCINE 00:00:00 [facility] TDAP (ADACEL) 2019-04-24 Completed University of VACCINE 00:00:00 [facility] TDAP (ADACEL) 2019-04-24 Completed University of VACCINE 00:00:00 [facility] TDAP (ADACEL) 2019-04-24 Completed University of VACCINE 00:00:00 [facility] TDAP (ADACEL) 2019-04-24 Completed University of VACCINE 00:00:00 [facility] TDAP (ADACEL) 2019-04-24 Completed University of VACCINE 00:00:00 [place] [facility] [place] Influenza Virus 2019-03-28 Completed Universit y of Vaccine Quad .5 mL 00:00:00 [place] [facility] 6+ MO Branch Influenza Virus 2019-03-28 Completed Universit y of Vaccine Quad .5 mL 00:00:00 [place] [facility] 6+ MO Branch Influenza Virus 2019-03-28 Completed Universit y of Vaccine Quad .5 mL 00:00:00 [place] [facility] IM 6+ MO Branch Influenza Virus 2019-03-28 Completed Universit y of Vaccine Quad .5 mL 00:00:00 [place] [facility] IM 6+ MO Branch Influenza Virus 2019-03-28 Completed Universit y of Vaccine Quad .5 mL 00:00:00 [place] [facility] 6+ MO Branch Influenza Virus 2019-03-28 Completed Universit y of Vaccine Quad .5 mL 00:00:00 [place] [facility] 6+ MO Branch Influenza Virus 2019-03-28 Completed Universit y of Vaccine Quad .5 mL 00:00:00 [place] [facility] 6+ MO Branch Influenza Virus 2019-03-28 Completed Universit y of Vaccine Quad .5 mL 00:00:00 [place] [facility] 6+ MO Branch Influenza Virus 2019-03-28 Completed Universit y of Vaccine Quad .5 mL 00:00:00 [place] [facility] 6+ MO Branch Influenza Virus 2019-03-28 Completed Universit y of Vaccine Quad .5 mL 00:00:00 [place] [facility] 6+ MO Branch Influenza Virus 2019-03-28 Completed Universit y of Vaccine Quad .5 mL 00:00:00 [facility] 6+ MO Branch HPV9 2017-11-15 Completed University of 00:00:00 [facility] HPV9 2017-11-15 Completed University of 00:00:00 [facility] HPV9 2017-11-15 Completed University of 00:00:00 [facility] HPV9 2017-11-15 Completed University of 00:00:00 [facility] HPV9 2017-11-15 Completed University of 00:00:00 [facility] HPV9 2017-11-15 Completed University of 00:00:00 [facility] HPV9 2017-11-15 Completed University of 00:00:00 [facility] HPV9 2017-11-15 Completed University of 00:00:00 [facility] HPV9 2017-11-15 Completed University of 00:00:00 [place] [facility] HPV9 2017-11-15 Completed University of 00:00:00 [place] [facility] HPV9 2017-11-15 Completed University of 00:00:00 [place] [facility] HPV9 2017-11-15 Completed University of 00:00:00 [place] [facility] HPV9 2017-11-15 Completed University of 00:00:00 [place] [facility] HPV9 2017-11-15 Completed University of 00:00:00 [place] [facility] HPV9 2017-07-10 Completed University of 00:00:00 [place] [facility] HPV9 2017-07-10 Completed University of 00:00:00 [place] [facility] HPV9 2017-07-10 Completed University of 00:00:00 [place] [facility] HPV9 2017-07-10 Completed University of 00:00:00 [place] [facility] HPV9 2017-07-10 Completed University of 00:00:00 [place] [facility] HPV9 2017-07-10 Completed University of 00:00:00 [place] [facility] HPV9 2017-07-10 Completed [facility] 00:00:00 [facility] HPV9 2017-07-10 Completed [facility] 00:00:00 [facility] HPV9 2017-07-10 Completed [facility] 00:00:00 [facility] HPV9 2017-07-10 Completed [facility] 00:00:00 [facility] HPV9 2017-07-10 Completed [facility] 00:00:00 [facility] HPV9 2017-07-10 Completed [facility] 00:00:00 [facility] HPV9 2017-07-10 Completed [facility] of 00:00:00 [facility] HPV9 2017-07-10 Completed [facility] of 00:00:00 [facility] HPV9 2017-05-01 Completed [facility] 00:00:00 [facility] HPV9 2017-05-01 Completed [facility] 00:00:00 [facility] HPV9 2017-05-01 Completed [facility] of 00:00:00 [facility] HPV9 2017-05-01 Completed [facility] 00:00:00 [facility] HPV9 2017-05-01 Completed [facility] 00:00:00 [facility] HPV9 2017-05-01 Completed University of 00:00:00 [facility] HPV9 2017-05-01 Completed [facility] 00:00:00 [facility] HPV9 2017-05-01 Completed [facility] 00:00:00 [facility] HPV9 2017-05-01 Completed University of 00:00:00 [facility] HPV9 2017-05-01 Completed University of 00:00:00 [facility] HPV9 2017-05-01 Completed University of 00:00: [facility] HPV9 2017-05-01 Completed University of 00:00:00 [facility] HPV9 2017-05-01 Completed University of 00:00:00 [facility] HPV9 2017-05-01 Completed University of 00:00:00 [facility] Influenza Virus 2017-03-24 Completed Universit y of Vaccine Quad IM 3+ 00:00:[address] [facility] Influenza Virus 2017-03-24 Completed Universit y of Vaccine [facility] IM 3+ 00:00:[address] [facility] Influenza Virus 2017-03-24 Completed Universit y of Vaccine [facility] IM 3+ 00:00:[address] [facility] Influenza Virus 2017-03-24 Completed Universit y of Vaccine [facility] IM 3+ 00:00:[address] [facility] Influenza Virus 2017-03-24 Completed Universit y of Vaccine [facility] IM 3+ 00:00:[address] [facility] Influenza Virus 2017-03-24 Completed Universit y of Vaccine [facility] IM 3+ 00:00:[address] [facility] Influenza Virus 2017-03-24 Completed Universit y of Vaccine [facility] IM 3+ 00:00:[address] [facility] Influenza Virus 2017-03-24 Completed Universit y of Vaccine [facility] IM 3+ 00:00:[address] [facility] Influenza Virus 2017-03-24 Completed Universit y of Vaccine [facility] IM 3+ 00:00:[address] [facility] Influenza Virus 2017-03-24 Completed Universit y of Vaccine [facility] IM 3+ 00:00:[address] [facility] Influenza Virus 2017-03-24 Completed Universit y of Vaccine [facility] IM 3+ 00:00:[address] [facility] Influenza Virus 2017-03-24 Completed Universit y of Vaccine [facility] IM 3+ 00:00:[address] [facility] Influenza Virus 2017-03-24 Completed Universit y of [facility] IM 3+ 00:00:[address] [facility] Influenza Virus 2017-03-24 Completed Universit y of [facility] IM 3+ 00:00:[address] [facility] Tdap 2017-02-23 Completed University of 00:00:00 [facility] Tdap 2017-02-23 Completed University of 00:00:00 [facility] Tdap 2017-02-23 Completed University of 00:00:00 [facility] Tdap 2017-02-23 Completed University of 00:00:00 [facility] Tdap 2017-02-23 Completed [facility] of 00:00:00 [facility] Tdap 2017-02-23 Completed [facility] of 00:00:00 [facility] Tdap 2017-02-23 Completed [facility] of 00:00:00 [facility] TDAP 2017-02-23 Completed [facility] of 00:00:00 [facility] TDAP 2017-02-23 Completed [facility] of 00:00:00 [facility] TDAP 2017-02-23 Completed [facility] of 00:00:00 [facility] TDAP 2017-02-23 Completed [facility] 00:00:00 [facility] Tdap 2017-02-23 Completed [facility] of 00:00:00 [facility] Tdap 2017-02-23 Completed [facility] of 00:00:00 [facility] Tdap 2017-02-23 Completed University of 00:00:00 [facility] Td 2013-02-11 Completed University of 00:00:00 [facility] Td 2013-02-11 Completed [facility] of 00:00:00 [facility] Td 2013-02-11 Completed University of 00:00:00 [facility] Td 2013-02-11 Completed [facility] of 00:00:00 [facility] Td 2013-02-11 Completed [facility] of 00:00:00 [facility] Td 2013-02-11 Completed [facility] of 00:00:00 [facility] Td 2013-02-11 Completed [facility] of 00:00:00 [facility] Td 2013-02-11 Completed [facility] of 00:00:00 [facility] Td 2013-02-11 Completed [facility] of 00:00:00 [facility] Td 2013-02-11 Completed [facility] of 00:00:00 [facility] Td 2013-02-11 Completed [facility] of 00:00:00 [facility] Td 2013-02-11 Completed [facility] of 00:00:00 [facility] Td 2013-02-11 Completed University of 00:00:00 [facility] Td 2013-02-11 Completed University of 00:00:00 [facility] Vital Signs Vital Name Observation Time Observation Value Comments Source Systolic blood 2020-03-13 19:10:00 115 mm[Hg] Univer sity of pressure [facility] Diastolic blood 2020-03-13 19:10:00 77 mm[Hg] Unive rsity of pressure [facility] Heart rate 2020-03-13 19:10:00 88 /min [facility]i ty of [facility] Body temperature 2020-03-13 19:10:00 36.72 Sandie Univ ersity of [facility] Respiratory rate 2020-03-13 19:10:00 18 /min Univ ersity of [facility] Body height 2020-03-13 19:10:00 146.1 cm [facility] [place] [facility] Body weight 2020-03-13 19:10:00 61.236 kg [facility] [place] [facility] BMI 2020-03-13 19:10:00 28.71 kg/m2 [facility] [place] [facility] Systolic blood 2020-03-13 19:10:00 115 mm[Hg] Univer sity of pressure [facility] Diastolic blood 2020-03-13 19:10:00 77 mm[Hg] Unive rsity of pressure [facility] Heart rate 2020-03-13 19:10:00 88 /min [facility]i [facility] Body temperature 2020-03-13 19:10:00 36.72 Sandie Univ ersity of [facility] Respiratory rate 2020-03-13 19:10:00 18 /min Univ ersity of [facility] Body height 2020-03-13 19:10:00 146.1 cm [facility] Body weight 2020-03-13 19:10:00 61.236 kg [facility]i [facility] BMI 2020-03-13 19:10:00 28.71 kg/m2 [facility] Systolic blood 2019-08-13 16:58:00 120 mm[Hg] Univer sity of pressure [facility] Diastolic blood 2019-08-13 16:58:00 80 mm[Hg] Unive rsity of pressure [facility] Heart rate 2019-08-13 16:58:00 86 /min [facility] Body temperature 2019-08-13 16:58:00 36.17 Sandie Univ ers[facility] of [facility] Respiratory rate 2019-08-13 16:58:00 20 /min Univ ersity of [facility] Body height 2019-08-13 16:58:00 144.8 cm [facility]i [facility] of [facility] Body weight 2019-08-13 16:58:00 53.434 kg Universi ty of [facility] BMI 2019-08-13 16:58:00 25.49 kg/m2 Universi ty of [facility] Systolic blood 2019-07-16 15:19:00 119 mm[Hg] Univer sity of pressure [facility] Diastolic blood 2019-07-16 15:19:00 76 mm[Hg] Unive rsity of pressure [facility] Heart rate 2019-07-16 15:19:00 69 /min Universi ty of [facility] Body temperature 2019-07-16 15:19:00 36.06 Sanide Univ ersity of [facility] Respiratory rate 2019-07-16 15:19:00 18 /min Univ ersity of [facility] Body height 2019-07-16 15:19:00 144.8 cm Universi ty of [facility] Body weight 2019-07-16 15:19:00 55.157 kg Universi ty of [facility] BMI 2019-07-16 15:19:00 26.31 kg/m2 Universi ty of [facility] Oxygen saturation in 2019-07-16 15:19:00 99 /min [facility] Arterial blood by [facility] Pulse oximetry Branch Systolic blood 2019-03-04 15:52:00 112 mm[Hg] Univer sity of pressure [facility] Diastolic blood 2019-03-04 15:52:00 69 mm[Hg] Unive rsity of [facility] Heart rate 2019-03-04 15:52:00 76 /min Universi ty of [facility] Body temperature 2019-03-04 15:52:00 36.61 Sandie Univ ersity of [facility] Respiratory rate 2019-03-04 15:52:00 20 /min Univ ersity of [facility] Body height 2019-03-04 15:52:00 144.8 cm Universi ty of [facility] Body weight 2019-03-04 15:52:00 53.116 kg Universi ty of [facility] BMI 2019-03-04 15:52:00 25.34 kg/m2 Universi ty of [facility] Procedures Procedure Date / Time Performing Clinician Source Performed ASSIGNMENT OF BENEFITS 2020-03-13 18:59:19 Doctor Unassigned, No [facility] POCT TEST 2019-08-13 16:59:00 Yumiko Hernandez Universi ty of [facility] CONSENT FOR 2019-08-13 06:01:00 Doctor Unassigned, No Univer sity of [facility] HOSPITAL ADMISSION 2019-06-21 06:01:00 Doctor Unassigned, No Uni versity of [facility] GC & CHLAMYDIA AMPLIFIED 2019-03-04 17:35:00 Steffanie Gilmore Un iversity [facility] GALV ONLY - VAGINAL 2019-03-04 17:35:00 Steffanie Gilmore [facility] PATHOGENS BY DNA PROBE Medical [facility] POCT TEST 2019-03-04 15:55:00 Steffanie Gilmore [facility] ASSIGNMENT OF BENEFITS 2019-03-04 14:50:16 Doctor Unassigned, No [facility] Encounters Start End Encounter Admission Attending Care Care Encounter Source Date/Time Date/Time Type Type Clinicians Facility Department ID 2022 2022 Emergency EM [place], HCACL RAJINDER [id number] [facility] 21:53:00 23:34:00 Andres 40 [facility] 2020-09-08 2020-09-08 [facility] 1.2.840.114 [id number] Univers 00:00:00 00:00:00 Outreach Carmelo PRIMARY [id number] i ty of [facility] [place]2.[place] [id number] Oh dical [address] Branch 2020-09-08 2020-09-08 Patient Darrel [facility] 1.2.840.114 [id number] 00:00:00 00:00:00 Outreach Carmelo PRIMARY [id number] [place] CARE 4.2.7.2.686 PAVILLION [id number] 2020-03-13 2020-03-13 Office Adum, [facility] 1.2.840.114 [id number] Univers 13:59:31 15:02:02 Visit Carie Alfaro 350.1.13.10 ity [place] Profess[place] [phone] Oh dical nal [address] 2020-03-13 2020-03-13 Office Adum, [facility] 1.2.840.114 [id number] 13:59:31 15:02:02 Visit Carie Alfaro 350.1.13.10 [place] 4.2.7.2.686 Professio [phone] [address] 2020-03-13 2020-03-13 Outpatient R [facility] [id number] Univers 14:30:00 14:30:00 CARIE renteria [facility] 2020-03-13 2020-03-13 Orders Doctor JO-ANN 1.2.840.114 [id number] Univers 00:00:00 00:00:00 Only Unassigned, MIHCELLE 350.1.13.10 ity of [place] [facility] 4.2.7.2.686 Jose G as [phone] [address] 2020-03-05 2020-03-05 Outpatient R [facility] [id number] Univers 14:30:00 14:30:00 CARIE [facility] 2019-08-16 2019-08-16 Telephone [facility] [id number] Univers 00:00:00 00:00:00 Yumiko FUNERAL SALES MANAGER 350.1.13.10 it y of [facility] 4.2.7.2.686 Jose G as MATERNAL [phone] Med ical & CHILD [address] [place] [address] 2019-08-13 2019-08-13 Office [facility] 1.2.840.114 [id number] Univers 10:00:54 11:49:12 Visit Yumiko FUNERAL SALES MANAGER 350.1.13.10 it y of [facility] 4.2.7.2.686 Jose G as MATERNAL [id number] Med ical & CHILD [address] [place] [address] 2019-08-13 2019-08-13 Outpatient R [facility] [id number] Univers 10:15:00 10:15:00 YUMIKO renteria [facility] 2019-08-13 2019-08-13 Orders Doctor BUSCH 1.2.840.114 [id number] Univers 00:00:00 00:00:00 Only Unassigned, MICHELLE 350.1.13.10 ity of [place] [facility] 4.2.7.2.686 Jose G as [phone] [address] 2019-07-16 2019-07-16 [facility] 1.2.840.114 [id number] Univers 09:03:15 10:10:12 Kira L FUNERAL SALES MANAGER 350.1.13.10 i ty of Visit REGIONAL 4.2.7.2.686 Jose G as MATERNAL [id number] Med ical & CHILD 124 [facility] 2019-07-08 2019-07-08 Nurse JO-ANN Wright 1.2.840.114 [id number] Univers 00:00:00 00:00:00 Triage Lynnette MARTINEZY 350.1.13.10 it y of HOSPITAL 4.2.7.2.686 Jose G as [phone] [address] 2019-06-21 2019-06-21 Orders Doctor JO-ANN 1.2.840.114 [id number] Univers 00:00:00 00:00:00 Only Unassigned, MICHELLE 350.1.13.10 ity of [place] [facility] 4.2.7.2.686 Jose G as [phone] [address] 2019-03-06 2019-03-06 Telephone [facility] 1.2.840.114 [id number] Univers 00:00:00 00:00:00 Steffanie FUNERAL SALES MANAGER 350.1.13.10 it y of [facility] 4.2.7.2.686 Jose G as MATERNAL [id number] [facility] [address] [facility] 2019-03-04 2019-03-04 Initial [facility] 1.2.840.114 [id number] Univers 10:14:14 12:02:10 Steffanie FUNERAL SALES MANAGER 350.1.13.10 i ty of Visit [facility] 4.2.7.2.686 Jose G as MATERNAL [id number] Med ical & CHILD [address] [facility] 2019-03-04 2019-03-04 Orders Doctor JO-ANN 1.2.840.114 [id number] Univers 00:00:00 00:00:00 Only Unassigned, MICHELLE 350.1.13.10 ity of [place] [facility] 4.2.7.2.686 Jose G as [phone] [address] Results Test Description Test Time Test Comments Results Result Comments Source INFLUENZA A B 2022 23:31:00 Test Item Value Reference Range Interpretation Comme nts INFLUENZA A (test code = FLUAPCR) Negative Negative INFLUENZA B (test code = FLUBPCR) Negative Negative POCT [id number] 17:00:00 Test Item Value Reference Range Interpretation Comments POCT PREG (test code = 1605) Negative On board controls acceptable with Yes C Line (test code = 3574) POCT PREG LOT # (test code = 3575) [id number] POCT PREG TEST DATE (test 01/16/2021 code = 3576) [facility] [id number] 17:00:00 Test Item Value Reference Range Interpretation Comments POCT PREG (test code = 1605) Negative On board controls acceptable with Yes C Line (test code = 3574) POCT PREG LOT # (test code = 3575) [id number] POCT PREG TEST DATE (test 01/16/2021 code = 3576) [facility] - VAGINAL PATHOGENS BY DNA PROBE 2019-03-05 19:38:00 Test Item Value Reference Range Interpretation Comments Trichomonas vaginalis Negative Negative (test code = 2175511092) Gardnerella vaginalis Positive Negative A The pr esence of (test code = 0541940162) Gar dnerella vaginalis although sugges tive, is not diagnost ic of Bacterial Vagin osis. Yue species (test Negative Negative code = 6928505161) Lab Interpretation (test Abnormal code = 20009-0) [facility] CHLAMYDIA AMPLIFIED [id number] 18:19:00 Test Item Value Reference Range Interpretation Comments Lab Interpretation (test code = Normal 45775-0) [facility] [id number] 15:55:00 Test Item Value Reference Range Interpretation Comments POCT PREG (test code = 1605) Positive On board controls acceptable with C Yes Line (test code = 3574) POCT PREG LOT # (test code = 3575) POCT PREG TEST DATE (test code = 3576) [facility] [id number] 17:34:00 Test Item Value Reference Range Interpretation Comments [...] 0-2 #/HPF 0-5 UA EPITHELIAL CELLS (test MODERATE per HPF FEW code = EPIU) UA BACTERIA (test code = FEW #/HPF NONE A BACU) UA MUCUS (test code = MANY #/LPF FEW A MUCU) Urine Source? Clean CatchURINALYSIS [id number] 17:17:00 Test Item Value Reference Range Interpretation [...] = AMENA) UA LEUKOCYTE ESTERASE W NEGATIVE Phli/uL NEGATIVE REFLEX (test code = LEUUR) UA WBC (test code = WBCU) per HPF 0-5 UA RBC (test code = RBCU) per HPF 0-5 UA EPITHELIAL CELLS (test per HPF Few code = EPIU) UA BACTERIA (test code = per HPF NONE BACU) Urine Source? Clean Catch- DUP AB/PEL/SC [id number] 16:46:00 Name: DARRELL TURCIOS [facility] : 1995 Age/S: 23 / F [address] Unit #: [id number] Loc: [place] [address] Phys: Maryan Lay NP Acct: [id number] Dis Date: Status: REG ER PHONE #: [phone] Exam Date: 12/11/2018 1630 FAX #: [phone] Reason: PELVIC PAIN EXAMS: CPT CODE: [id number] DUP AB/PEL/SC COMP 17875 REASON FOR EXAM: VAGINAL BLEEDING/PELVIC PAIN EXAM ORDER DATE: 12/11/2018 [...] (12 week 0 day). The average crown-rump lengthmeasurement is 3.7 cm (10 week 4 day. heart rate is 1 69 bpm. The right [...] Jeff Valentin M.D. CC: Maryan Lay NP; Manior Raygoza MD Technologist: Susy Bonilla RDMS Trnscb Date/Time: 12/11/2018 (1645) Cam Orig Print D/T: S: 12/11/2018 (6267) Probe: PAGE1 Signed Report- US PREG 1ST TRIMTR 2018-12-11 16:46:00 Name: DARRELL TURCIOS [facility] : 1995 Age/S: 23 / F [address] [facility] Unit #: [id number] Loc: [place] [address] Phys: Maryan Lay NP Acct: [id number] Dis Date: Status: REG ER PHONE #: Exam Date: 12/11/2018 1630 FAX #: [phone] Reason: VAGINAL BLEEDING/PELVIC PAIN EXAMS: CPT CODE: [id number] US PREG 1ST TRIMTR 13985 REASON FOR EXAM: VAGINAL BLEEDING/PELVIC PAIN EXAM ORDER DATE: 12/11/2018 [...] is 3.7 cm (10 week 4 day. heart rate is 1 69 bpm. The right [...] Mainor Raygoza MD Technologist: Susy Bonilla RDMS Trnscb Date/Time: 12/11/2018 (164) OzzieVTL Orig Print D/T: S: 12/11/2018 (6724) Probe: PAGE 1 Signed ReportHCG SERUM BETA 2018-12-11 16:18:00 Test Item Value Reference Range Interpretation Comments HCG SERUM BETA 95421.0 mIU/mL 0-3 H Interfering substances (test code [...] HOUR S. 0-1 WEEKS AFTER CONCEPTION 5-50 MIU/ML1-2 WEEKS AFTER CONCEPTION 50-5 00 MIU/ML2-3 WEEKS AFTER CONCEPTION 100 -5,000 MIU/ML3-4 WEEKS AFTER CONCEPTION 500- 10,000 MIU/ML4-5 WEEKS AFTER CONCEPTION 1000 -50,000 MIU/ML5-6 WEEKS AFTER CONCEPTION 10,000-100,000 MIU/ML6-8 WEEKS AFTER CONCEPTION 15,0 00- 200,000 MIU/ML2 -3 MONTHS AFTER CO NCEPTION 10,000-100,000 MIU/ML BASIC METABOLIC [id number] 14:59:00 Test Item Value Reference Range Interpretation [...] GFR) formula.Chronic kidney disease is defined as ei er kidney damageor GFR <60 mL/min/1.73 m2 for >3 months. CREATININE (test code 0.50 mg/dL 0.55-1.02 L Note change in = CREAT) reference range due to change in reagent. BUN/CREATININE RATIO 22.0 10-20 H (test code = BUN/CREA) CALCIUM (test code = 8.6 mg/dL 8.5-10.1 N CA) HCG SERUM [id number] 14:59:00 Test Item Value Reference Range Interpretation Comments HCG SERUM QUAL (test POSITIVE NEGATIVE A This HC GQL test is NOT code = HCGQL) applicable for MALE patients.Check with nurse about probable order error.If Tumor Marker Test needed, nu rse should order test "HCG TU"(Test #550.84957)---- - [id number] 14:59:00 Test Item Value Reference Range Interpretation Comments TROPONIN-I (test code = TROPI) <0.015 ng/mL 0-0.045 N BASIC METABOLIC [id number] 14:53:00 Test Item Value Reference Range Interpretation [...] CREAT) mg/dL 0.55-1.02 BUN/CREATININE RATIO (test code 1020 = BUN/CREA) CALCIUM (test code = CA) mg/dL 8.5-10.1 HCG SERUM [id number] 14:53:00 Test Item Value Reference Range Interpretation Comments HCG SERUM QUAL (test POSITIVE NEGATIVE A This HC GQL test is NOT code = HCGQL) applicable for MALE patients.Check with nurse about probable order error.If Tumor Marker Test needed, nu rse should order test "HCG TU"(Test #550.84225)---- - [id number] 14:53:00 Test Item Value Reference Range Interpretation Comments TROPONIN-I (test code = TROPI) ng/mL 0-0.045 BASIC METABOLIC [id number] 14:51:00 Test Item Value Reference Range Interpretation [...] code = CA) mg/dL 8.5-10.1 HCG SERUM [id number] 14:51:00 Test Item Value Reference Range Interpretation Comments HCG SERUM QUAL (test code = HCGQL) NEGATIVE [id number] 14:51:00 Test Item Value Reference Range Interpretation Comments TROPONIN-I (test code = TROPI) ng/mL 0-0.045 CBC W/O [id number] 14:44:00 Test Item Value Reference Range Interpretation [...] code fL 6.7-11.0 = MPV) CBC W/O [id number] 14:44:00 Test Item Value Reference Range Interpretation [...] code 9.6 fL 6.7-11.0 N = MPV) Notes Date/Time Note Provider Source 2022 22:22:00-00:00 [facility]) EMERGENCY PROVIDER REPORT REPORT#:[id number] REPORT STATUS: Signed DATE:07/31/22 TIME: 2221 PATIENT: DARRELL TURCIOS #: [id number] ROOM/BED: AGE: 27 SEX: F PCP PHYS: No Primary or Family Ph ysician SERVICE AUTHOR: Fahad Johnson * ALL edits or amendments must be made on the Given.to/computer document * Fahad Johnson 07/31/222221: HPI-General Illness Free Text HPI Notes Free Text HPI Notes 27 yo F with no reported medical history presents with body ahces, sore throat and chills for two days. Pt denies fever , cp, sob or NVD. Work sent her to the ER to be evaluated. General Confirmed Patient Yes Initial Greet Date/Time 07/31/222157 Presentation Chief Complaint Not feeling well Hx Obtained From Patient Review of Systems ROS Statements All systems rev neg except as marked. Past Medical History - Adult Stated Complaint FLU SX'S Allergies Coded Allergies: No Known Allergies (12/11/18) Additional Medical History reports none Past Surgical History: Reports: . Additional Surgical History reports none Alcohol Use Denies EtOH use Drug Use Denies recreational drugs Smoking status for patients 13 years old or olde r: Never Smoker Other Social History Good social support Physical Exam Vital Signs Vital Signs First Documented: Result Date Time Pulse Ox 99 07/31 2209 B/P 118/76 07/31 2209 B/P Mean 90 07/31 2209 O2 Delivery Room air 07/31 2209 Temp 36.7 07/31 2209 Pulse 75 07/31 2209 Resp 15 07/31 2209 Last Documented: Result Date Time Pulse Ox 99 07/31 2209 B/P 118/76 07/31 2209 B/P Mean 90 07/31 2209 O2 Delivery Room air 07/31 2209 Temp 36.7 07/31 2209 Pulse 75 07/31 2209 Resp 15 07/31 2209 Review of Vital Signs Reviewed Physical Exam General/Const General/Const Awake, Alert, No acute distress, Not toxic appearing Ears/Nose/Throat Ears/Nose/Throat Airway patent, Mucous membrane s moist Text/Dict Notes pharynx with erythema, no edema MS Neck Neck Supple, No meningismus Resp/Chest Respiratory/Chest Breath sounds NL, Breath soun ds = bilat, No respiratory distress Cardiovascular Cardiovascular Heart rate NL, Regular rhythm, H eart sounds NL, No gallop Abdomen/GI Abdomen/GI Soft, Non-tender Skin Skin Color NL, Warm, Dry Neurologic Neurologic Oriented X3, Speech NL, No motor def icits, No sensory deficits Psychiatric Psychiatric Affect NL, Mood NL Interpretation Diagnostics Lab Results Interpretation Results Laboratory Tests: 07/31 2251 Serology Influenza Type A (PCR) (Negative) Negative Influenza Type B (PCR) (Negative) Negative Microbiology: Date/Time Procedure - Status Source Growth 07/31 2251 Group A Streptococcus Screen (DONNY) - COMP THROAT 07/31 2251 Streptococcus Culture - COMP THROAT Lab Statement Laboratory studies reviewed and considered in e medical decision-making. Re-Evaluation MDM Free Text MDM Notes Free Text MDM Notes 27 F presents with sore throat, body aches and i s non toxic appearing. differential includes viral syndrome, strep, vir al pharyngitis Re-Evaluation/Progress #1 Time of Re-Eval 2322 Re-Eval Status Improved Eval Following Treatment Pt. feels better, Condi tion improved Pain Re-Evaluation Denies pain ED Course Medication(s) Ordered Medication(s) Ordered: Central Nervous System Agents Sig/Zain Start time Last Medication Dose Route Stop Time Status Admin Acetaminophen 500 MG X1ED STA 07/31 2202 DC PO 07/31 Naproxen 500 MG X1ED STA 07/31 2202 DC 07/31 PO 07/31 Patient Discharge Departure Vital Signs/Condition Vital Signs First Documented: Result Date Time Pulse Ox 99 07/31 2209 B/P 118/76 07/31 2209 B/P Mean 90 07/31 2209 O2 Delivery Room air 07/31 2209 Temp 36.7 07/31 2209 Pulse 75 07/31 2209 Resp 15 07/31 2209 Last Documented: Result Date Time Pulse Ox 99 07/31 2209 B/P 118/76 07/31 2209 B/P Mean 90 07/31 2209 O2 Delivery Room air 07/31 2209 Temp 36.7 07/31 2209 Pulse 75 07/31 2209 Resp 15 07/31 2209 All vital signs available at the time of this en try have been reviewed. Condition Improved Clinical Impression Clinical Impression Primary Impression: Viral syndrome Disposition Decision Discharge )( Discharged to Home Yes )( Time 2323 )( Date 07/31/22 Discharge/Care Plan Counseled Regarding Diagnosis, Lab resul ts, Prescriptions, Need for follow-up, When to return to ED (Auto) Prescriptions Current Visit Scripts NAPROXEN (NAPROSYN) 500 MG PO BID PRN PRN PAIN NAPROXEN (NAPROSYN) 500 MG PO BID PRN PRN PAIN #15 TABS Patient Instructions ED Viral Syndrome (Adult) Andres Alcala 08/01/22 0336: Patient Discharge Departure Discharge/Care Plan Referrals Provider Referral: Gagandeep Hylton MD Address: [address] [facility] [address] [place] [address] Provider Referral: Enedina Avila DO Address: [address] [place] [address] Provider Referral: Gurinder Drummond MD Address: [address] [place] [id number] Provider Referral: Jeff Blanc DO Address: [address] [place] [address] Provider Referral: Shaggy Helm III, MD Address: [address] [place] [address] Provider Referral: Araceli Pimentel MD Follow-Up: 2-3 Days Address: [id number] [place] [address]. [address] [place] [address] Supervising Physician Note MidLv Saw Pt Alone I have reviewed the PA/DIANETIC COUNSELOR's note and plan of car candy. I was available for consultation as needed at al l times during the patient's visit in the emergency department. I agree with the clinical impression , plan and disposition. Electronically Signed by Fahad Johnson on at 0014 Electronically Signed by Andres Alcala MD on 07/20 09/08 at 0336 RPT #:[id number] END OF REPORT 2018-12-11 14:26:00-00:00 [facility] ([facility]) EMERGENCY PROVIDER REPORT REPORT#:[id number] REPORT STATUS: Signed DATE:12/11/18 TIME: 1425 PATIENT: DARRELL TURCIOS UNIT #: [id number] ROOM/BED: AGE: 23 SEX: F PCP PHYS: DOES_NOT KNOW SERVICE AUTHOR: Maryan Lay DIANETIC COUNSELOR * ALL edits or amendments must be made on the el ectronic/computer document * HPI-Dizziness/Weakness General Confirmed Patient Yes Patient Type New patient Initial Greet Date/Time 12/11/18 1420 PCP no pcp Presentation Chief Complaint Dizzy, Nausea Hx Obtained From Patient Onset Occurred Weeks ago (4) Symptom Duration Since onset Progression since Onset Waxes and wanes Quality Unable to verbalize Radiation No: Does not radiate. Severity: Onset Mild Severity: Current Mild Associated with Denies: Altered sensation, Chest pain, Fever, He adache. Associated Other Pt denies other symptoms Exacerbated by Nothing Relieved by Nothing Context Immunization Status General Unknown Recent Healthcare No recent doctor visit, No rec ent hospitalization Similar Sx Previous No /Sexual Hx Last Menstrual Period 10/31/18 Sexual History/ Control Reports: Pt is sexually active. Free Text HPI Notes Free Text HPI Notes 23 y f with c/o of dizziness and nausea. Patient states that symptoms have been ongoing for approximately 4 weeks. Patie nt states that symptoms waxe and wean. Patient denies injury, trauma, or sick c ontacts. Patient denies fever, chills, headache, chest pain, weakness, sob, abdominal p ain, urinary symptoms, flank pain, pelvic pain, vaginal b leeding/discharge, or rash. Patient unsure if she is , LMP 10/31/18. Patient denies pmh. Psh . No neurological deficits noted on exam. Patient ambulatory to ex am room in no nad. Risk-Dizziness/Weakness Risk Stratification NIH Stroke Scale NIH Stroke Scale Response Value NIHSS Applicable? No 0 Total 0 Stroke Risk factors reviewed Review of Systems ROS Statements All systems rev neg except as marked. Focused Review of Systems Constitutional Denies: Chills, Fever, Lethargy. Eyes Denies: Diplopia, Eye pain bilat, Redness bilat, Visual loss bilat. Ears/Nose/Throat Denies: Earache bilat, Nasal congestion, Sore th roat. Respiratory Denies: Cough, non-productive, Cough, productive , Shortness of breath. Cardiovascular Denies: Chest pain, Syncope. GI Reports: Nausea. Denies: Abd ominal pain, Anorexia, Belching, Bloody/tarry stool , Constipation, Diarrhea, Dysphagia, Hem atemesis, Hematochezia, Mucousy stool, Melena, Rectal pain, Vomiting. Female Denies: Flank pain, Hematuria, Pelvic pain. Hematologic Denies: Bleeding, Bruising. Endocrine Denies: Polyuria, Weight loss. Skin Denies: Diaphoresis, Rash. Neurologic Reports: Dizziness. Psychiatric Denies: Anxiety, Depression. Past Medical History - Adult Stated Complaint WEAKNESS Allergies Coded Allergies: No Known Allergies (12/11/18) Home Medications Reported Medications No Known Home Medications Review of Nursing Notes Rev avail, and disagree, Triage notes reviewed Additional Medical History reports none Past Surgical History: Reports: . Additional Surgical History reports none Alcohol Use Denies EtOH use Drug Use Denies recreational drugs Smoking status for patients 13 years old or olde r: Never Smoker Other Social History Good social support Physical Exam Vital Signs Vital Signs First Documented: Result Date Time Pulse Ox 99 12/11 1427 B/P 118/77 12/11 1427 B/P Mean 90 12/11 1427 Temp 37.2 12/11 1427 Pulse 98 12/11 1427 Resp 18 12/11 1427 Last Documented: Result Date Time B/P 124/65 12/11 1831 B/P Mean 84 12/11 1831 Temp 37.2 12/11 1831 Pulse 87 12/11 1831 Resp 16 12/11 1831 Pulse Ox 99 12/11 1427 Review of Vital Signs Reviewed Focused PE General/Const General/Const Awake, Alert MS Head Head Normocephalic Eyes Eyes PERRL, EOMI, Conjunctiva NL Ears/Nose/Throat Ears/Nose/Throat Airway patent, Mucous membrane s moist, Pharynx NL, Tympanic membs NL, Ext aud canal NL MS Neck Neck Supple, No meningismus, Full range of ramos on, No swelling, Non-tender, No masses, No JVD, No carotid bruit, Thyroid NL Resp/Chest Respiratory/Chest Breath sounds NL, Breath soun ds = bilat, No respiratory distress, No rales, No rhonchi, No wheezing Cardiovascular Cardiovascular Heart rate NL, Regular rhythm, H eart sounds NL, No murmurs, Cap refill not delayed, Peripheral circulation N L Abdomen/GI Abdomen/GI Soft, Non-tender, No guarding, No re bound MS Back Back Inspection NL, Non-tender, No CVA tenderne ss MS Lower Extrem Lower Ext/Pelvis/MS Inspection NL, No swelling, Non-tender, No erythema, No deformity, Neurologic intact, Vascular intact, N o edema Skin Skin Color NL, Warm, Dry, Turgor NL Neurologic Neurologic Oriented X3, Speech NL, No m otor deficits, No sensory deficits, CN II - XII intact, Cerebellar NL Psychiatric Psychiatric Affect NL, Mood NL, Cognitive funct ion NL, Thought content NL Interpretation Diagnostics Lab Results Interpretation Results Laboratory Tests 12/11/18 1427: [Embedded Image Not Available] Laboratory Tests: 12/11 12/11 1615 1427 Chemistry Sodium (136 - 145 mmol/L) 139 Potassium (3.5 - 5.1 mmol/L) 3.9 Chloride (98 - 107 mmol/L) 109.0 H Carbon Dioxide (21 - 32 mmol/L) 22.0 Anion Gap (10 - 20) 11.9 BUN (7 - 18 mg/dL) 11 Creatinine (0.55 - 1.02 mg/dL) 0.50 L Glomerular Filtr Rate (>=60 mL/min) > 60 BUN/Creatinine Ratio (10 - 20) 22.0 H Glucose (74 - 106 mg/dL) 86 Calcium (8.5 - 10.1 mg/dL) 8.6 Troponin I (0 - 0.045 ng/mL) <0.015 Serum , Qual (NEGATIVE) POSITIVE H Hematology WBC (4.5 - 12.5 K/mm3) 8.8 RBC (3.7 - 5.2 mill/mm3) 4.11 Hgb (11.5 - 15.5 gram/dL) 12.7 Hct (36.0 - 46.0 %) 34.8 L MCV (80 - 98 fL) 84.7 MCH (27.0 - 33.0 picogram) 30.9 MCHC (33.0 - 36.0 gram/dL) 36.5 H RDW (11.6 - 16.2 %) 11.9 Plt Count (150 - 450 K/mm3) 267 MPV (6.7 - 11.0 fL) 9.6 Miscellaneous Matrnl HCG Beta Subunit (0 - 3 mIU/mL) 80878.0 H Urines Urine Color (YELLOW) YELLOW Urine Appearance (CLEAR) CLEAR Urine pH (5.0 - 8.0) 6.0 Ur Specific Bentley (1.001 - 1.035) 1.032 Urine Protein (NEGATIVE mg/dL) 20 (Trace) H Urine Glucose (UA) (NEGATIVE mg/dL) NEGATIVE Urine Ketones (NEGATIVE mg/dL) 10 (1+) H Urine Blood (NEGATIVE mg/dL) 0.03 mg/dL (Trace) H Urine Nitrite (NEGATIVE) NEGATIVE Urine Bilirubin (NEGATIVE mg/dL) NEGATIVE Urine Urobilinogen (NEGATIVE mg/dL) Normal Ur Leukocyte Esterase (NEGATIVE Phil/uL) NEGATIV E Urine RBC (0 - 5 #/HPF) 0-2 Urine WBC (0 - 5 per HPF) 0-5 Ur Epithelial Cells (FEW per HPF) MODERATE Urine Bacteria (NONE #/HPF) FEW H Urine Mucus (FEW #/LPF) MANY H Recent Impressions: ULTRASOUND - US PREG 1ST TRIMTR 12/11 1621 Report Impression - Status: SIGNED Entered: 12/11/2018 1649 IMPRESSION: Single viable IUP with estimated son ographic age of 11 weeks 2 days +/-0 weeks 6 days. Estimated delive ry date is 06/30/2019 Impression By: Cam Valentin M.D. ULTRASOUND - DUP AB/PEL/SC COMP 12/11 1621 Report Impression - Status: SIGNED Entered: 12/11/2018 1649 IMPRESSION: Single viable IUP with estimated son ographic age of 11 weeks 2 days +/-0 weeks 6 days. Estimated delive ry date is 06/30/2019 Impression By: Cam Valentin M.D. Lab Imaging Statement Laboratory radiographic studies reviewed and con sidered in the medical decision-making. Point of Care Testing Urinalysis Interpretation Urinalysis NL Pulse Oximetry Pulse Ox % 99 On: Room air Interpretation Interpreted by me Time 1427 Test Positive - serum HCG ECG #1 Interpretation ECG Documented in MUSE Yes Date 12/11/18 Time 1614 Interpreted by ED physician NL ECG Interpretation Normal rate, No STEMI Rate 73 Sonography US Focused OB Exam Type Diagnostic Exam Performed by ED physician Clinical Category Symptom-based Exam Interpreted by Radiologist Reviewed by myself Indication Pelvic pain Findings for IUP Location: fundus Interpretation Intrauterine Re-Evaluation MDM Free Text MDM Notes Free Text MDM Notes Patient refuses to have bloo d draw for ABO/RH. As she states, that she has been stuck multiple times already. IUP noted on ultrasound. Patient was educated on diagnosis, lab analysis and ultrasound reports, supportive treatment at home , maintaining hydration, s/s of when to return to ER , and pcp follow up. Patient prescribed Tylenol and Zofran. Patient verbalized understanding. Patient was provided with [facility] resources where she can follow up within the next 24 to 48 hours for further evaluation. Farzana bansal was also provided with a referral to Dr. Margaret lamas, for further evaluation. Patient verbalized understanding. Additional Text I reevaluated patient prior to discharge, maile t in no nad. Re-Evaluation/Progress #1 Time of Re-Eval 1530 Re-Eval Status Unchanged, waiting for medication s Eval Following Treatment Condition unchanged Pain Re-Evaluation Pain unchanged NIH Stroke Scale NIH Stroke Scale Response Value NIHSS Applicable? No 0 Total 0 Exam Post Tx - General Active, Alert, Appears we ll, Vital signs stable Exam Post Tx - Sys Review Mental status baseline Plan Post Re-Eval Plan observe Re-Evaluation/Progress #2 Time of Eval 1607 Re-Eval Status Patient has a positive test, will order serum beta, and ultrasound for further evaluation. Patient infor med about results. Eval Following Treatment Condition unchanged NIH Stroke Scale NIH Stroke Scale Response Value NIHSS Applicable? No 0 Total 0 Exam Post Tx - General Active, Alert, Appears we ll Exam Post Tx - Sys Review Abdomen soft, Mental s tatus baseline Plan Post Re-Eval Plan observe Re-Evaluation/Progress #3 Time of Eval 1745 Re-Eval Status Improved Eval Following Treatment Condition improved, Alexis sea resolved Pain Re-Evaluation Denies pain NIH Stroke Scale NIH Stroke Scale Response Value NIHSS Applicable? No 0 Total 0 Exam Post Tx - General Active, Alert, Appears we ll, Vital signs stable, Capillary refill normal Exam Post Tx - Sys Review Abdomen soft, Mental s tatus baseline Plan Post Re-Eval Plan discharge Dizziness/Weakness MDM Note The patient is resting comfortably and feels bet ter, is alert, talkative, interactive and in no distress. The repeat exami nation is unremarkable and benign. The patient is neuro logically intact, has a normal mental status and is ambulatory in the ED. The history, exam, diagnos tic testing (if any) and the patient's current condition do not suggest menin gitis, stroke, sepsis, subarachnoid hemorrhage, intracranial bleeding, encephalitis or other significant pathology that w ould warrant further testing, continued ED treatment , admission, neurological consultation, or other specialist evaluation at this point. The vital signs have been stable. The patient's condition is stable and appropriate for discharge. T he patient will pursue further outpatient evaluation with the primary care physician or other designated or consulting physician as indicated in the discharge instructions. ED Course Medication(s) Ordered Medication(s) Ordered: Electrolytic, Caloric, And Criselda Sig/Zain Start time Last Medication Dose Route Stop Time Status Admin Sodium Chloride 1,000 ML X1ED STA 12/11 1425 DC 12/11 IV 12/11 1524 1649 Gastrointestinal Drugs Sig/Zain Start time Last Medication Dose Route Stop Time Status Admin Ondansetron HCl 4 MG X1ED STA 12/11 1425 DC IV 12/11 1426 1650 Patient Discharge Departure Vital Signs/Condition Vital Signs First Documented: Result Date Time Pulse Ox 99 12/11 1427 B/P 118/77 12/11 1427 B/P Mean 90 12/11 1427 Temp 37.2 12/11 1427 Pulse 98 12/11 1427 Resp 18 12/11 1427 Last Documented: Result Date Time B/P 124/65 12/11 1831 B/P Mean 84 12/11 1831 Temp 37.2 12/11 1831 Pulse 87 12/11 1831 Resp 16 12/11 1831 Pulse Ox 99 12/11 1427 All vital signs available at the time of this en try have been reviewed. Condition Stable Clinical Impression Clinical Impression Primary Impression: Intrauterine Secondary Impressions: Dizzinesses, Naus ea and vomiting during prior to 22 weeks gestation Disposition Decision Discharge )( Discharged to Home Yes )( Time 1759 )( Date 12/11/18 Discharge/Care Plan Counseled Regarding Diagnosi s, Lab results, Imaging studies, Prescriptions, Need for follow-up, When to return to ED Prescriptions Tylenol and Zofran Prescriptions Reviewed Risks, Benefits, Alternat manda treatment Discharge Note I have spoken with the patie nt and/or caregivers. I have explained the patient's condition, diagnoses and shantelle atment plan based on the information available to me at this time. I have answered the patient's and/ or caregiver's questions and addressed any concerns. The patient and/or careg ranjit have as good an understanding of the patient 's diagnosis, condition and treatment plan as can be expected at this point. The vital signs have bee n stable. The patient's condition is stable and appr opriate for discharge from the emergency department. The patient will pursue further outpatient evalu ation with the primary care physician or other designated or consulting phys chidi as outlined in the discharge instructions. The patient and/or caregivers are agreeable to this plan of care and follow-up instructions have been exp lained in detail. The patient and/or caregivers have received these instructio ns in written format and have expressed an understanding of the discharge inst ructions. The patient and/or caregivers are aware that any significant change in condition or worsening of symptoms should prompt an immediate return to [facility] or the closest emergency department or a call to 911. Quality Measures BP F/U for HTN Referred for BP f/u < 4wk, F/u wi PCP/other doc US in Preg w/AP/VB Trans-abd/vag US done RH- Risk Fet Bld Exposure Patient refusal Current Medications Attest: Medication review Preg Test for Women w/Abd Pa in Female age 14-50, Complaint of abdominal pn, Any preg test ordered Smoking Cessation Screened, non user Tobacco Screening/Cessation 18 years or older, D enies tobacco use Smoking Cessation Counseling The patient was questioned r egarding their smoking habits, and I have determined , as the patient's treating physician, that ther e is a medical necessity in regards to the patient's med ical condition to provide smoking cessation program education. The patient was a dvised to stop smoking and counseled for a period of greater than 3 minutes. The patient was instructed to follow up with a primary care physician for smoking cessation and given i nformation regarding local smoking cessation programs i n the area. The patient received detailed discharge instructions as to how to stop smoking. The patient expressed an understanding of the need to follow up and the plan for smokin g cessation. Electronically Signed by Maryan Lay NP on 12/11 at 1922 RPT #:[id number] END OF REPORT 2018-12-11 14:26:00-00:00 [facility] ([facility]) EMERGENCY PROVIDER REPORT REPORT#:[id number] REPORT STATUS: Signed DATE:12/11/18 TIME: 1426 PATIENT: DARRELL TURCIOS UNIT #: [id number] ROOM/BED: AGE: 23 SEX: F PCP PHYS: DOES_NOT KNOW SERVICE AUTHOR: Maryan Lay DIANETIC COUNSELOR * ALL edits or amendments must be made on the Given.to/[employer]urb[employer] document * Lay,Maryan 12/11/18 1426: HPI-Dizziness/Weakness General Confirmed Patient Yes Patient Type New patient PCP no pcp Presentation Chief Complaint Dizzy, Nausea Hx Obtained From Patient Onset Occurred Weeks ago (4) Symptom Duration Since onset Progression since Onset Waxes and wanes Quality Unable to verbalize Radiation No: Does not radiate. Severity: Onset Mild Severity: Current Mild Associated with Denies: Altered sensation, Chest pain, Fever, He adache. Associated Other Pt denies other symptoms Exacerbated by Nothing Relieved by Nothing Context Immunization Status General Unknown Recent Healthcare No recent doctor visit, No rec ent hospitalization Similar Sx Previous No /Sexual Hx Last Menstrual Period 10/31/18 Sexual History/ Control Reports: Pt is sexually active. Free Text HPI Notes Free Text HPI Notes 23 y f with c/o of dizziness and nausea. Patient states that symptoms have been ongoing for approximately 4 weeks. Patie nt states that symptoms waxe and wean. Patient denies injury, trauma, or sick c ontacts. Patient denies fever, chills, headache, chest pain, weakness, sob, abdominal p ain, urinary symptoms, flank pain, pelvic pain, vaginal b leeding/discharge, or rash. Patient unsure if she is , LMP 10/31/18. Patient denies pmh. Psh . No neurological deficits noted on exam. Patient ambulatory to ex am room in no nad. Risk-Dizziness/Weakness Risk Stratification NIH Stroke Scale NIH Stroke Scale Response Value NIHSS Applicable? No 0 Total 0 Stroke Risk factors reviewed Review of Systems ROS Statements All systems rev neg except as marked. Focused Review of Systems Constitutional Denies: Chills, Fever, Lethargy. Eyes Denies: Diplopia, Eye pain bilat, Redness bilat, Visual loss bilat. Ears/Nose/Throat Denies: Earache bilat, Nasal congestion, Sore th roat. Respiratory Denies: Cough, non-productive, Cough, productive , Shortness of breath. Cardiovascular Denies: Chest pain, Syncope. GI Reports: Nausea. Denies: Abd ominal pain, Anorexia, Belching, Bloody/tarry stool , Constipation, Diarrhea, Dysphagia, Hem atemesis, Hematochezia, Mucousy stool, Melena, Rectal pain, Vomiting. Female Denies: Flank pain, Hematuria, Pelvic pain. Hematologic Denies: Bleeding, Bruising. Endocrine Denies: Polyuria, Weight loss. Skin Denies: Diaphoresis, Rash. Neurologic Reports: Dizziness. Psychiatric Denies: Anxiety, Depression. Past Medical History - Adult Stated Complaint WEAKNESS Allergies Coded Allergies: No Known Allergies (12/11/18) Home Medications Reported Medications No Known Home Medications Review of Nursing Notes Rev avail, and disagree, Triage notes reviewed Additional Medical History reports none Past Surgical History: Reports: . Additional Surgical History reports none Alcohol Use Denies EtOH use Drug Use Denies recreational drugs Smoking status for patients 13 years old or olde r: Never Smoker Other Social History Good social support Physical Exam Vital Signs Vital Signs First Documented: Result Date Time Pulse Ox 99 12/11 1427 B/P 118/77 12/11 1427 B/P Mean 90 12/11 1427 Temp 37.2 12/11 1427 Pulse 98 12/11 1427 Resp 18 12/11 1427 Last Documented: Result Date Time B/P 124/65 12/11 1831 B/P Mean 84 12/11 1831 Temp 37.2 12/11 1831 Pulse 87 12/11 1831 Resp 16 12/11 1831 Pulse Ox 99 12/11 1427 Review of Vital Signs Reviewed Focused PE General/Const General/Const Awake, Alert MS Head Head Normocephalic Eyes Eyes PERRL, EOMI, Conjunctiva NL Ears/Nose/Throat Ears/Nose/Throat Airway patent, Mucous membrane s moist, Pharynx NL, Tympanic membs NL, Ext aud canal NL MS Neck Neck Supple, No meningismus, Full range of ramos on, No swelling, Non-tender, No masses, No JVD, No carotid bruit, Thyroid NL Resp/Chest Respiratory/Chest Breath sounds NL, Breath soun ds = bilat, No respiratory distress, No rales, No rhonchi, No wheezing Cardiovascular Cardiovascular Heart rate NL, Regular rhythm, H eart sounds NL, No murmurs, Cap refill not delayed, Peripheral circulation N L Abdomen/GI Abdomen/GI Soft, Non-tender, No guarding, No re bound MS Back Back Inspection NL, Non-tender, No CVA tenderne ss MS Lower Extrem Lower Ext/Pelvis/MS Inspection NL, No swelling, Non-tender, No erythema, No deformity, Neurologic intact, Vascular intact, N o edema Skin Skin Color NL, Warm, Dry, Turgor NL Neurologic Neurologic Oriented X3, Speech NL, No m otor deficits, No sensory deficits, CN II - XII intact, Cerebellar NL Psychiatric Psychiatric Affect NL, Mood NL, Cognitive funct ion NL, Thought content NL Interpretation Diagnostics Lab Results Interpretation Results Laboratory Tests 12/11/18 1427: [Embedded Image Not Available] Laboratory Tests: 12/11 12/11 1615 1427 Chemistry Sodium (136 - 145 mmol/L) 139 Potassium (3.5 - 5.1 mmol/L) 3.9 Chloride (98 - 107 mmol/L) 109.0 H Carbon Dioxide (21 - 32 mmol/L) 22.0 Anion Gap (10 - 20) 11.9 BUN (7 - 18 mg/dL) 11 Creatinine (0.55 - 1.02 mg/dL) 0.50 L Glomerular Filtr Rate (>=60 mL/min) > 60 BUN/Creatinine Ratio (10 - 20) 22.0 H Glucose (74 - 106 mg/dL) 86 Calcium (8.5 - 10.1 mg/dL) 8.6 Troponin I (0 - 0.045 ng/mL) <0.015 Serum , Qual (NEGATIVE) POSITIVE H Hematology WBC (4.5 - 12.5 K/mm3) 8.8 RBC (3.7 - 5.2 mill/mm3) 4.11 Hgb (11.5 - 15.5 gram/dL) 12.7 Hct (36.0 - 46.0 %) 34.8 L MCV (80 - 98 fL) 84.7 MCH (27.0 - 33.0 picogram) 30.9 MCHC (33.0 - 36.0 gram/dL) 36.5 H RDW (11.6 - 16.2 %) 11.9 Plt Count (150 - 450 K/mm3) 267 MPV (6.7 - 11.0 fL) 9.6 Miscellaneous Matrnl HCG Beta Subunit (0 - 3 mIU/mL) 31087.0 H Urines Urine Color (YELLOW) YELLOW Urine Appearance (CLEAR) CLEAR Urine pH (5.0 - 8.0) 6.0 Ur Specific Bentley (1.001 - 1.035) 1.032 Urine Protein (NEGATIVE mg/dL) 20 (Trace) H Urine Glucose (UA) (NEGATIVE mg/dL) NEGATIVE Urine Ketones (NEGATIVE mg/dL) 10 (1+) H Urine Blood (NEGATIVE mg/dL) 0.03 mg/dL (Trace) H Urine Nitrite (NEGATIVE) NEGATIVE Urine Bilirubin (NEGATIVE mg/dL) NEGATIVE Urine Urobilinogen (NEGATIVE mg/dL) Normal Ur Leukocyte Esterase (NEGATIVE Phil/uL) NEGATIV E Urine RBC (0 - 5 #/HPF) 0-2 Urine WBC (0 - 5 per HPF) 0-5 Ur Epithelial Cells (FEW per HPF) MODERATE Urine Bacteria (NONE #/HPF) FEW H Urine Mucus (FEW #/LPF) MANY H Recent Impressions: ULTRASOUND - US PREG 1ST TRIMTR 12/11 1621 Report Impression - Status: SIGNED Entered: 12/11/2018 1649 IMPRESSION: Single viable IUP with estimated son ographic age of 11 weeks 2 days +/-0 weeks 6 days. Estimated delive ry date is 06/30/2019 Impression By: Cam Valentin M.D. ULTRASOUND - DUP AB/PEL/SC COMP 12/11 1621 Report Impression - Status: SIGNED Entered: 12/11/2018 1649 IMPRESSION: Single viable IUP with estimated son ographic age of 11 weeks 2 days +/-0 weeks 6 days. Estimated delive ry date is 06/30/2019 Impression By: Cam Valentin M.D. Lab Imaging Statement Laboratory radiographic studies reviewed and con sidered in the medical decision-making. Point of Care Testing Urinalysis Interpretation Urinalysis NL Pulse Oximetry Pulse Ox % 99 On: Room air Interpretation Interpreted by me Time 1427 Test Positive - serum HCG ECG #1 Interpretation ECG Documented in MUSE Yes Date 12/11/18 Time 1614 Interpreted by ED physician NL ECG Interpretation Normal rate, No STEMI Rate 73 Sonography US Focused OB Exam Type Diagnostic Exam Performed by ED physician Clinical Category Symptom-based Exam Interpreted by Radiologist Reviewed by myself Indication Pelvic pain Findings for IUP Location: fundus Interpretation Intrauterine Re-Evaluation MDM Free Text MDM Notes Free Text MDM Notes Patient refuses to have bloo d draw for ABO/RH. As she states, that she has been stuck multiple times already. IUP noted on ultrasound. Patient was educated on diagnosis, lab analysis and ultrasound reports, supportive treatment at home , maintaining hydration, s/s of when to return to ER , and pcp follow up. Patient prescribed Tylenol and Zofran. Patient verbalized understanding. Patient was provided with [facility] resources where she can follow up within the next 24 to 48 hours for further evaluation. Farzana ent was also provided with a referral to Dr. Margaret lamas, for further evaluation. Patient verbalized understanding. Additional Text I reevaluated patient prior to discharge, maile t in no nad. Re-Evaluation/Progress #1 Time of Re-Eval 1530 Re-Eval Status Unchanged, waiting for medication s Eval Following Treatment Condition unchanged Pain Re-Evaluation Pain unchanged NIH Stroke Scale NIH Stroke Scale Response Value NIHSS Applicable? No 0 Total 0 Exam Post Tx - General Active, Alert, Appears we ll, Vital signs stable Exam Post Tx - Sys Review Mental status baseline Plan Post Re-Eval Plan observe Re-Evaluation/Progress #2 Time of Eval 1607 Re-Eval Status Patient has a positive test, will order serum beta, and ultrasound for further evaluation. Patient infor med about results. Eval Following Treatment Condition unchanged NIH Stroke Scale NIH Stroke Scale Response Value NIHSS Applicable? No 0 Total 0 Exam Post Tx - General Active, Alert, Appears we ll Exam Post Tx - Sys Review Abdomen soft, Mental s tatus baseline Plan Post Re-Eval Plan observe Re-Evaluation/Progress #3 Time of Eval 1745 Re-Eval Status Improved Eval Following Treatment Condition improved, Alexis sea resolved Pain Re-Evaluation Denies pain NIH Stroke Scale NIH Stroke Scale Response Value NIHSS Applicable? No 0 Total 0 Exam Post Tx - General Active, Alert, Appears we ll, Vital signs stable, Capillary refill normal Exam Post Tx - Sys Review Abdomen soft, Mental s tatus baseline Plan Post Re-Eval Plan discharge Dizziness/Weakness MDM Note The patient is resting comfortably and feels bet ter, is alert, talkative, interactive and in no distress. The repeat exami nation is unremarkable and benign. The patient is neuro logically intact, has a normal mental status and is ambulatory in the ED. The history, exam, diagnos tic testing (if any) and the patient's current condition do not suggest menin gitis, stroke, sepsis, subarachnoid hemorrhage, intracranial bleeding, encephalitis or other significant pathology that w ould warrant further testing, continued ED treatment , admission, neurological consultation, or other specialist evaluation at this point. The vital signs have been stable. The patient's condition is stable and appropriate for discharge. T he patient will pursue further outpatient evaluation with the primary care physician or other designated or consulting physician as indicated in the discharge instructions. ED Course Medication(s) Ordered Medication(s) Ordered: Electrolytic, Caloric, And Criselda Sig/Zain Start time Last Medication Dose Route Stop Time Status Admin Sodium Chloride 1,000 ML X1ED STA 12/11 1425 DC 12/11 IV 12/11 1524 1649 Gastrointestinal Drugs Sig/Zain Start time Last Medication Dose Route Stop Time Status Admin Ondansetron HCl 4 MG X1ED STA 12/11 1425 DC IV 12/11 1426 1650 Patient Discharge Departure Vital Signs/Condition Vital Signs First Documented: Result Date Time Pulse Ox 99 12/11 1427 B/P 118/77 12/11 1427 B/P Mean 90 12/11 1427 Temp 37.2 12/11 1427 Pulse 98 12/11 1427 Resp 18 12/11 1427 Last Documented: Result Date Time B/P 124/65 12/11 1831 B/P Mean 84 12/11 1831 Temp 37.2 12/11 1831 Pulse 87 12/11 1831 Resp 16 12/11 1831 Pulse Ox 99 12/11 1427 All vital signs available at the time of this en try have been reviewed. Condition Stable Clinical Impression Clinical Impression Primary Impression: Intrauterine Secondary Impressions: Dizzinesses, Naus ea and vomiting during prior to 22 weeks gestation Disposition Decision Discharge )( Discharged to Home Yes )( Time 175 )( Date 12/11/18 Discharge/Care Plan Counseled Regarding Diagnosi s, Lab results, Imaging studies, Prescriptions, Need for follow-up, When to return to ED Prescriptions Tylenol and Zofran Prescriptions Reviewed Risks, Benefits, Alternat manda treatment Discharge Note I have spoken with the patie nt and/or caregivers. I have explained the patient's condition, diagnoses and shantelle atment plan based on the information available to me at this time. I have answered the patient's and/ or caregiver's questions and addressed any concerns. The patient and/or careg ranjti have as good an understanding of the patient 's diagnosis, condition and treatment plan as can be expected at this point. The vital signs have bee n stable. The patient's condition is stable and appr opriate for discharge from the emergency department. The patient will pursue further outpatient evalu ation with the primary care physician or other designated or consulting phys chidi as outlined in the discharge instructions. The patient and/or caregivers are agreeable to this plan of care and follow-up instructions have been exp lained in detail. The patient and/or caregivers have received these instructio ns in written format and have expressed an understanding of the discharge inst ructions. The patient and/or caregivers are aware that any significant change in condition or worsening of symptoms should prompt an immediate return to [facility] or the closest emergency department or a call to 911. Quality Measures BP F/U for HTN Referred for BP f/u < 4wk, F/u wi th PCP/other doc US in Preg w/AP/VB Trans-abd/vag US done RH- Risk Fet Bld Exposure Patient refusal Current Medications Attest: Medication review Preg Test for Women w/Abd Pa in Female age 14-50, Complaint of abdominal pn, Any preg test ordered Smoking Cessation Screened, non user Tobacco Screening/Cessation 18 years or older, D enies tobacco use Smoking Cessation Counseling The patient was questioned r egarding their smoking habits, and I have determined , as the patient's treating physician, that ther e is a medical necessity in regards to the patient's med ical condition to provide smoking cessation program education. The patient was a dvised to stop smoking and counseled for a period of greater than 3 minutes. The patient was instructed to follow up with a primary care physician for smoking cessation and given i nformation regarding local smoking cessation programs i n the area. The patient received detailed discharge instructions as to how to stop smoking. The patient expressed an understanding of the need to follow up and the plan for smokin g cessation. Mainor Raygoza 12/11/18 193: HPI-Dizziness/Weakness General Initial Greet Date/Time 12/11/18 1420 Physical Exam Vital Signs Vital Signs Interpretation Diagnostics Lab Results Interpretation Results Re-Evaluation MDM ED Course Medication(s) Ordered Patient Discharge Departure Vital Signs/Condition Vital Signs Supervising Physician Note MidLv Saw Pt Alone I have reviewed the PA/DIANETIC COUNSELOR's note and plan of car e. I was available for consultation as needed at al l times during the patient's visit in the emergency department. I agree with the clinical impression , plan and disposition. Electronically Signed by Maryan Lay NP on 12/11 at 1922 at 1932 RPT #:[id number] END OF REPORT
--- NOTE | 2023-01-23 16:24 | EDPHYS ---
Physician Documentation [facility] Name: Camilla Sawant Age: 27 yrs Sex: Female : 1995 Arrival Date: 01/23/2023 Time: 15:41 Bed Treatment Private MD: ED Physician Cristino Bui HPI: 01/23 16:24 This 27 yrs old Female presents to ER via Ambulatory with complaints of ms3 Allergic Reaction. 16:24 27-year-old female with past medical history of anxiety, depression, bipolar disorder ms3 presents for allergic reaction that began last night. Patient denies pain at this time. Patient endorses itching and irritation below bilateral eyes. Patient denies shortness of breath, nausea, vomiting, fevers, chills, tongue swelling, lip swelling.. 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 - Social history:: Smoking status: unknown. ROS: 16:24 Constitutional: Negative for fever, and chills. Neck: Negative for injury, pain, and ms3 swelling, Cardiovascular: Negative for chest pain, and palpitations. Respiratory: Negative for shortness of breath, cough, wheezing, and pleuritic chest pain, Abdomen/GI: Negative for abdominal pain, nausea, vomiting, diarrhea, and constipation, MS/Extremity: Negative for injury and deformity. 16:24 Skin: Positive for rash, swelling. 16:24 All other systems are negative. Exam: 16:24 Constitutional: This is a well developed, well nourished patient who is awake, alert, ms3 and in no acute distress. Neck: Trachea midline, no cervical lymphadenopathy. Supple, full range of motion without nuchal rigidity, or vertebral point tenderness. No Meningismus. Chest/axilla: Normal chest wall appearance and motion. Nontender with no deformity. Cardiovascular: Regular rate and rhythm with a normal S1 and S2. No gallops, murmurs, or rubs. Normal PMI, no JVD. No pulse deficits. Respiratory: Lungs have equal breath sounds bilaterally, clear to auscultation and percussion. No rales, rhonchi or wheezes noted. No increased work of breathing, no retractions or nasal flaring. Abdomen/GI: Soft, non-tender, with normal bowel sounds. No distension or tympany. No guarding or rebound. No evidence of tenderness throughout. MS/ Extremity: Pulses equal, no cyanosis. Neurovascular intact. Full, normal range of motion. 16:24 Head/face: Noted is swelling, that is mild, of the right cheek and left cheek. 16:24 Skin: consistent with urticaria. Vital Signs: 16:17 BP 123 / 90; Pulse 79; Resp 16; Temp 98.2; Pulse Ox 100% on R/A; Weight 58.97 kg; cm10 Height 4 ft. 10 in. ; Pain 2/10; 17:15 BP 128 / 90; Pulse 84; Resp 16; Pulse Ox 99% on R/A; tf2 16:17 Body Mass Index 27.17 (58.97 kg, 147.32 cm) cm10 16:17 Pain Scale: Adult cm10 [place] Coma Score: 17:18 Eye Response: spontaneous(4). Motor Response: obeys commands(6). Verbal Response: tf2 oriented(5). Total: 15. MDM: 16:23 Patient medically screened. ms3 16:26 Differential diagnosis: urticaria, Allergic rxn. Data reviewed: vital signs, nurses ms3 notes. I considered the following discharge prescriptions or medication management in the emergency department Medications were administered in the Emergency Department. See MAR. Care significantly affected by the following Social Determinants of Health: Poor access to healthcare and/or lack of insurance. Counseling: I had a detailed discussion with the patient and/or guardian regarding: the historical points, exam findings, and any diagnostic results supporting the discharge/admit diagnosis, the need for outpatient follow up, to return to the emergency department if symptoms worsen or persist or if there are any questions or concerns that arise at home. Special discussion: I discussed with the patient/guardian in detail that at this point there is no indication for admission to the hospital. It is understood, however, that if the symptoms persist or worsen the patient needs to return immediately for re-evaluation. ED course: Patient with swelling below bilateral eyes, no angioedema present, no wheezing. Patient follow-up Dr. Bray in 2 to 3 days. Patient given prescription for prednisone x 5 days. Return precautions discussed include tongue swelling, lip swelling, difficulty breathing, worsening symptoms, or any other concerns.. Administered Medications: 17:15 Drug: predniSONE PO 40 mg Route: PO; tf2 17:19 Follow up: Response: No adverse reaction tf2 Disposition Summary: 01/23/23 16:24 Discharge Ordered Location: Home ms3 Condition: Stable ms3 Diagnosis - Allergic Reaction ms3 Followup: ms3 - With: Fady Bray MD - When: 2 - 3 days - Reason: Recheck today's complaints Discharge Instructions: - Discharge Summary Sheet ms3 - Contact Dermatitis, [id number] ms3 Forms: - Medication Reconciliation Form ms3 - Thank You Letter ms3 - Antibiotic Education ms3 - Prescription Opioid Use ms3 - Patient Portal Instructions ms3 Prescriptions: - Prednisone 20 mg Oral Tablet - take 2 tablets by ORAL route once daily for 5 days; 10 tablet; Refills: 0, ms3 Product Selection Permitted Signatures: Cristino Bui DO DO ms3 Ida Raygoza RN RN cm10 Brittney Hinojosa RN RN tf2 Corrections: (The following items were deleted from the chart) 16:21 16:19 Home Meds: None; cm10 cm10 16:21 16:19 PMHx: None; cm10 cm10
--- NOTE | 2023-01-23 16:24 | ER ---
Nurse's Notes [facility] Name: Camilla Sawant Age: 27 yrs Sex: Female : 1995 Arrival Date: 01/23/2023 Time: 15:41 Bed Treatment Private MD: Diagnosis: Allergic Reaction Presentation: 01/23 16:17 Chief complaint: Patient states: bilateral eye swelling onset last night. Pt states cm10 that this started last night and that her eyes itch. Pt states that she has been taking benadryl. Coronavirus screen: Vaccine status: Patient reports being unvaccinated. Ebola Screen: Patient denies travel to an Ebola-affected area in the 21 days before illness onset. No symptoms or risks identified at this time. Onset: The symptoms/episode began/occurred last night. Anaphylaxis evaluation, no signs or symptoms of anaphylaxis were noted. Initial Sepsis Screen: Does the patient meet any 2 criteria? No. Patient's initial sepsis screen is negative. Does the patient have a suspected source of infection? No. Patient's initial sepsis screen is negative. Risk Assessment: Do you want to hurt yourself or someone else? Patient reports no desire to harm self or others. Onset of symptoms was January 22, 2023. 16:17 Method Of Arrival: Ambulatory cm10 16:17 Acuity: WILMER 4 cm10 Triage Assessment: 17:18 General: Appears in no apparent distress. Behavior is calm, cooperative. 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 - Social history:: Smoking status: unknown. Screenin:15 [facility] ED Fall Risk Assessment (Adult) History of falling in the last 3 months, tf2 including since admission No falls in past 3 months (0 pts) Confusion or Disorientation No (0 pts) Intoxicated or Sedated No (0 pts) Impaired Gait No (0 pts) Mobility Assist Device Used No (0 pt) Altered Elimination No (0 pt) Score/Fall Risk Level 0 - 2 = Low Risk Oriented to surroundings. Abuse screen: Denies threats or abuse. Denies injuries from another. Nutritional screening: No deficits noted. Tuberculosis screening: No symptoms or risk factors identified. Assessment: 17:15 Pain: Denies pain. Respiratory: No deficits noted. : No deficits noted. Reports tf2 Denies pain WITH INTERCOURSE. 17:18 Respiratory: Airway is patent. tf2 17:18 Respiratory: Breath sounds are clear. tf2 17:18 Respiratory: Respiratory effort is unlabored. tf2 Vital Signs: 16:17 BP 123 / 90; Pulse 79; Resp 16; Temp 98.2; Pulse Ox 100% on R/A; Weight 58.97 kg; cm10 Height 4 ft. 10 in. ; Pain 2/10; 17:15 BP 128 / 90; Pulse 84; Resp 16; Pulse Ox 99% on R/A; tf2 16:17 Body Mass Index 27.17 (58.97 kg, 147.32 cm) cm10 16:17 Pain Scale: Adult cm10 [place] Coma Score: 17:18 Eye Response: spontaneous(4). Motor Response: obeys commands(6). Verbal Response: tf2 oriented(5). Total: 15. ED Course: 15:42 Patient arrived in ED. rg4 15:44 Cristino Bui DO is Attending Physician. ms3 16:19 Triage completed. cm10 16:21 Arm band placed on Patient placed in waiting room. cm10 16:23 Fady Bray MD is Referral Physician. ms3 16:59 Brittney Hinojosa, JJ is Primary Nurse. tf2 17:15 Patient has correct armband on for positive identification. Bed in low position. Call tf2 light in reach. Side rails up X2. Provided Education on: MEDS. 17:15 No provider procedures requiring assistance completed. Patient did not have IV access tf2 during this emergency room visit. intact. Administered Medications: 17:15 Drug: predniSONE PO 40 mg Route: PO; tf2 17:19 Follow up: Response: No adverse reaction tf2 Medication: 17:15 VIS not applicable for this client. tf2 Outcome: 16:24 Discharge ordered by . ms3 17:15 Discharged to home ambulatory. tf2 17:15 Condition: good 17:15 Discharge instructions given to patient, Instructed on discharge instructions, medication usage, Demonstrated understanding of instructions, follow-up care, medications, Prescriptions given X 1. 17:19 Patient left the ED. tf2 Signatures: Ariane Estrada rg4 Cristino Bui DO DO ms3 Ida Raygoza RN RN cm10 Brittney Hinojosa RN RN tf2 Corrections: (The following items were deleted from the chart) 16:21 16:19 Home Meds: None; cm10 cm10 16:21 16:19 PMHx: None; cm10 cm10
[2023-01-23] MEDS ORDERED: predniSONE 20 MG TAB ONE (17:12)
[2023-01-23 17:45] VITALS: TEMP 98.2
[2023-01-23 17:47] VITALS: BP 128/90; O2SAT 99
== END 2023-01-23 17:19 | disposition home or self-care (01) ==
LOC: ER 15:41
DX: R21 Rash and other nonspecific skin eruption (principal); L50.9 Urticaria, unspecified
CPT/HCPCS: 99283; J7512

== ENCOUNTER 2023-02-18 10:49 | Emergency (ER) | payer SELFPAY ==
--- OUTSIDE RECORDS SUMMARY | 2023-02-18 10:55 | XMS REPORT | Continuity of Care Document ---
:1995 Author Organization [facility] t Address [address] [place] [address] Care Team Providers Name Role Phone KIRA CEDILLO Primary Care Physician Unavailable SHANNAN HERNANDEZ Attending Clinician Unavailable Andres Alcala Attending Clinician Unavailable Carmelo Rojo DO Attending Clinician Carie Og MD Attending Clinician CARIE OG Attending Clinician Unavailable Doctor Unassigned, [place] Attending Clinician Unavailable Yumiko Hernandez CNM Attending [...] 2-28 it y of anemia anemia 00:00: [place] 00 [facility] Branch Lipids Lipids Disease Active Univers abnormal abnormal 2-28 ity of 00:00: [place] 00 Medical Branch Nexplanon Nexplanon Disease Active Uni vers insertion insertion 2-25 ity of 00:00: [place] [facility] Disease Active Uni vers examinatio examinatio 2-25 it y of n or test, n [place] test, [place] negative negative 00 Medica l result result Branch Anemia, Anemia, Disease Active Univers 1-28 it y of 00:00: [place] [facility] Labor and Labor and Disease [...] 0-22 it y of adult adult 00:00: [address] Poor Poor Disease Active 2018-06 U nivers [...] anch antepartum antepartum Vaginal Vaginal Disease Active Univers discharge discharge 9-16 ity of during during 00:00: [place] 00 Medi ginny in second in second Bran ch trimester trimester Spontaneou Spontaneou Disease Active 2017- U nivers s vaginal s vaginal 1-14 ity of delivery delivery 00:00: [place] 00 Medical Branch Oligohydra Oligohydra Disease Active 2016-06 U nivers mnios mnios 1-12 ity of antepartum antepartum 00:00: [place] , third , third 00 Medical trimester, trimester, Br anch not not applicable applicable or or unspecifie unspecifie d fetus d fetus 38 weeks 38 weeks Disease Active 2016-06 Unive rs gestation gestation 1-11 ity of of of 00:00: [place] 00 [facility] High-risk High-risk Disease Active Uni vers 9-08 ity of in third in third 00:00: [place] trimester trimester 00 [facility] Branch Anemia of Anemia of Disease Active Uni vers mother in mother in 9 ity of , , [place] antepartum antepartum 00 Wy dical Branch UTI in UTI in Disease Active Univers , , 4-28 it y of antepartum antepartum 00:00: [place] [...] Date Clinician No Known DA Active U 2018-0 [facility] 6-25 Clear s 00:00: [place] 00 [facility] No Known DA Active U 0 [facility] [place] [facility] No Known DA Active U 2015-06 [facility] 0-30 [place] 00:[facility]: e 00 [facility] Center NO KNOWN Drug Active Univers ALLERGIE Class ity of S [facility] Social History Social Habit Start Date Stop Date Quantity Comments Source ASSERTION 2018-10-07 University of 00:00:00 [facility] Exposure to Not sure University of SARS-CoV-2 [facility] (event) Branch Tobacco use and 2020-03-15 2020-03-15 Never used Universit y of exposure 00:00:00 00:00:00 [facility] Alcohol intake 2020-03-15 2020-03-15 Current drinker Unive rsity of 00:00:00 00:00:00 of alcohol [place] [facility] (finding) Branch History [facility] 2020-03-13 2020-03-13 2 University o f Alcohol Frequency 00:00:00 00:00:00 [place] [facility] History [facility] 2020-03-13 2020-03-13 99 University o f Alcohol Std 00:00:00 00:00:00 [place] [facility] Drinks Branch History [facility] 2020-03-13 2020-03-13 99 University o f Alcohol Binge 00:00:00 00:00:00 [place] [facility] Alcohol Comment 2019-03-04 2019-03-04 Occassionally. Unive rsity of 00:00:00 00:00:00 07/2018 last [place] [facility] l time. Branch Sex Assigned At [birth year] Universit y of 00:00:00 00:00:00 [place] [facility] Smoking Status Start Date Stop Date Source Never smoker [facility] Medical Branch Medications Ordered Filled Start Stop Current Ordering Indication Dosage Frequency Signature Comments Components Source Medication Medication Date Date Medication? Clinician (SIG) Name Name etonogestre 0 Yes 68mg 68 mg by Un ranjit L 9-25 Subdermal ity of (NEXPLANON) 19:56: route once [place] 68 mg 59 now. Medical implant Branch etonogestre Yes 68mg 68 mg by Un ranjit L 9-25 Subdermal ity of (NEXPLANON) 19:56: route once [place] 68 mg 59 now. Medical implant Branch etonogestre Yes 68mg 68 mg by Un ranjit L 9-25 Subdermal ity of (NEXPLANON) 19:56: route once [place] 68 mg 59 now. Medical implant Branch ferrous Yes [id number] 325mg Take 1 Uni vers sulfate 325 2-28 tablet by ity of mg (65 mg 00:00: mouth [place] iron) 00 daily. Medical tablet Branch ferrous Yes [id number] 325mg Take 1 Uni vers sulfate 325 2-28 tablet by ity of mg (65 mg 00:00: mouth [place] iron) 00 daily. Medical tablet Branch ferrous 2019-0 Yes [id number] 325mg Take 1 Uni vers sulfate 325 2-28 tablet by ity of mg (65 mg 00:00: mouth [place] iron) 00 daily. Medical tablet Branch ferrous 2019- Yes [id number] 325mg Take 1 Uni vers sulfate 325 2-28 tablet by ity of mg (65 mg 00:00: mouth [place] iron) 00 daily. Medical tablet Branch ferrous Yes [id number] 325mg Take 1 Uni vers sulfate 325 [...] :00 1 dose, Medica l mg Tue [place] 08/13/19 at 1230, Routine
Use approved by: HEALTHCARE ECONOMICS MANAGER etonogestre 2019- No 68mg Unive rs l 08-13 ity of (NEXPLANON) 18:30: 19:22 [place] implant 68 00 :00 Medical mg Branch etonogestre 2019- No 68mg 68 mg, Uni vers l 08-13 Subdermal, ity of (NEXPLANON) 18:30: 19:22 ONCE NOW, [place] implant 68 00 :00 1 dose, Medica l mg Tue [place] 08/13/19 at 1230, Routine
Use approved by: HEALTHCARE ECONOMICS MANAGER Yes [id number] 1{packe Take 1 Univers vit 1-28 t} Packet by ity of 33-iron-fol 00:00: mouth [place] ic-dha 00 daily. Medical (SELECT-OB Branch + DHA) 29 mg iron-1 mg -250 mg combo pack Iron, Cbn & Yes [id number] 1{tbl} Take 1 Univers Gluc-FA-B12 1-28 tablet by ity of -C-DSS 00:00: mouth [place] (FERRALET 00 daily. Medical 90 Branch DUAL-IRON DELIVERY) 90-1-12-50 mg-mg-mcg-m g per tablet buPROPion Yes [id number] 150mg Take 1 U nivers SR 1-28 tablet by ity of (WELLBUTRIN 00:00: mouth 2 Jose G as SR) 150 mg 00 (two) Medical SR tablet times Branch daily. 2020-0 Yes [id number] 1{packe Take 1 Univers vit 1-28 t} Packet by ity of 33-iron-fol 00:00: mouth [place] ic-dha 00 daily. Medical (SELECT-OB Branch + DHA) 29 mg iron-1 mg -250 mg combo pack Iron, Cbn & 2020-0 Yes [id number] 1{tbl} Take 1 Univers Gluc-FA-B12 1-28 tablet by ity of -C-DSS 00:00: mouth [place] (FERRALET 00 daily. Medical Branch DUAL-IRON DELIVERY) 90-1-12-50 mg-mg-mcg-m g per tablet buPROPion 2020-0 Yes [id number] 150mg Take 1 U nivers SR 1-28 tablet by ity of (WELLBUTRIN 00:00: mouth 2 [place] as SR) 150 mg 00 (two) Medical SR tablet times Branch daily. 2020-0 Yes [id number] 1{packe Take 1 Univers vit 1-28 t} Packet by ity of 33-iron-fol 00:00: mouth [place] ic-dha 00 daily. Medical (SELECT-OB Branch + DHA) 29 mg iron-1 mg -250 mg combo pack Iron, Cbn & 2020-0 Yes [id number] 1{tbl} Take 1 Univers Gluc-FA-B12 1-28 tablet by ity of -C-DSS 00:00: mouth [place] (FERRALET 00 daily. Medical Branch DUAL-IRON DELIVERY) 90-1-12-50 mg-mg-mcg-m g per tablet buPROPion 2020-0 Yes [id number] 150mg Take 1 U nivers SR 1-28 tablet by ity of (WELLBUTRIN 00:00: mouth 2 [place] as SR) 150 mg 00 (two) Medical SR tablet times Branch daily. 2020-0 Yes [id number] 1{packe Take 1 Univers vit 1-28 t} Packet by ity of 33-iron-fol 00:00: mouth [place] ic-dha 00 daily. Medical (SELECT-OB Branch + DHA) 29 mg iron-1 mg -250 mg combo pack Iron, Cbn & 2020-0 Yes [id number] 1{tbl} Take 1 Univers Gluc-FA-B12 1-28 tablet by ity of -C-DSS 00:00: mouth [place] (FERRALET 00 daily. Medical Branch DUAL-IRON DELIVERY) 90-1-12-50 mg-mg-mcg-m g per tablet buPROPion 2020-0 Yes [id number] 150mg Take 1 U nivers SR 1-28 tablet by ity of (WELLBUTRIN 00:00: mouth 2 [place] as SR) 150 mg 00 (two) Medical SR tablet times Branch daily. 2020-0 Yes [id number] 1{packe Take 1 Univers vit 1-28 t} Packet by ity of 33-iron-fol 00:00: mouth [place] ic-dha 00 daily. Medical (SELECT-OB Branch + DHA) 29 mg iron-1 mg -250 mg combo pack Iron, Cbn & 2020-0 Yes [id number] 1{tbl} Take 1 Univers Gluc-FA-B12 1-28 tablet by ity of -C-DSS 00:00: mouth [place] (FERRALET [address] DUAL-IRON DELIVERY) 90-1-12-50 mg-mg-mcg-m g per tablet buPROPion 2020-0 Yes [id number] 150mg Take 1 U nivers SR 1-28 tablet by ity of (WELLBUTRIN 00:00: mouth 2 [place] as SR) 150 mg 00 (two) Medical SR tablet times Branch daily. 2020-0 Yes [id number] 1{packe Take 1 Univers vit 1-28 t} Packet by ity of 33-iron-fol 00:00: mouth [place] ic-dha 00 daily. Medical (SELECT-OB Branch + DHA) 29 mg iron-1 mg -250 mg combo pack Iron, Cbn & 2020-0 Yes [id number] 1{tbl} Take 1 Univers Gluc-FA-B12 1-28 tablet by ity of -C-DSS 00:00: mouth [place] (FERRALET [address] DUAL-IRON DELIVERY) 90-1-12-50 mg-mg-mcg-m g per tablet buPROPion 2020-0 Yes [id number] 150mg Take 1 U nivers SR 1-28 tablet by ity of (WELLBUTRIN 00:00: mouth 2 [place] as SR) 150 mg 00 (two) Medical SR tablet times Branch daily. 2020-0 Yes [id number] 1{packe Take 1 Univers vit 1-28 t} Packet by ity of 33-iron-fol 00:00: mouth [place] ic-dha 00 daily. Medical (SELECT-OB Branch + DHA) 29 mg iron-1 mg -250 mg combo pack Iron, Cbn & 2020-0 Yes [id number] 1{tbl} Take 1 Univers Gluc-FA-B12 1-28 tablet by ity of -C-DSS 00:00: mouth [place] (FERRALET [address] DUAL-IRON DELIVERY) 90-1-12-50 mg-mg-mcg-m g per tablet buPROPion 2020-0 Yes [id number] 150mg Take 1 U nivers SR 1-28 tablet by ity of (WELLBUTRIN 00:00: mouth 2 [place] as SR) 150 mg 00 (two) Medical SR tablet times Branch daily. 2020-0 Yes [id number] 1{packe Take 1 Univers vit 1-28 t} Packet by ity of 33-iron-fol 00:00: mouth [place] ic-dha 00 daily. Medical ([facility]-OB Branch + DHA) 29 mg iron-1 mg -250 mg combo pack Iron, Cbn & 2020-0 Yes [id number] 1{tbl} Take 1 Univers Gluc-FA-B12 1-28 tablet by ity of -C-DSS 00:00: mouth [place] (FERRALET [address] DUAL-IRON DELIVERY) 90-1-12-50 mg-mg-mcg-m g per tablet buPROPion 2020-0 Yes [id number] 150mg Take 1 U nivers SR 1-28 tablet by ity of (WELLBUTRIN 00:00: mouth 2 [place] as SR) 150 mg 00 (two) Medical SR tablet times Branch daily. 2020-0 Yes [id number] 1{packe Take 1 Univers vit 1-28 t} Packet by ity of 33-iron-fol 00:00: mouth [place] ic-dha 00 daily. Medical (SELECT-OB Branch + DHA) 29 mg iron-1 mg -250 mg combo pack Iron, Cbn & 2020-0 Yes [id number] 1{tbl} Take 1 Univers Gluc-FA-B12 1-28 tablet by ity of -C-DSS 00:00: mouth [place] (FERRALET [address] DUAL-IRON DELIVERY) 90-1-12-50 mg-mg-mcg-m g per tablet buPROPion 2020-0 Yes [id number] 150mg Take 1 U nivers SR 1-28 tablet by ity of (WELLBUTRIN 00:00: mouth 2 [place] as SR) 150 mg 00 (two) Medical SR tablet times Branch daily. docusate 2020-0 Yes [id number] 240mg Take 1 U nivers calcium 240 1-05 capsule by it y of mg capsule 00:00: mouth once [place] 00 daily as Medical needed for Branch Constipati on. HYDROcodone 2020-0 Yes [id number] 1{tbl} Take 1 Univers -acetaminop 1-05 tablet by ity of hen 5-325 00:00: mouth [place] mg tablet 00 every 6 Medical (six) Branch hours as needed for Pain (scale 4-6) (If uncontroll ed by Ibuprofen) . ibuprofen 2019-0 Yes [id number] 600mg Take 1 Univers 600 mg 1-05 tablet by ity of tablet 00:00: mouth [place] 00 every 6 Medical (six) Branch hours as needed for Pain (scale 1-3). simethicone 2020-0 Yes [id number] 160mg Take 2 Univers 80 mg 1-05 tablets by ity of chewable 00:00: mouth [place] tablet 00 after Medical meals and Branch at bedtime as needed for Gas. ibuprofen 2020-0 Yes [id number] 600mg Take 1 Univers 600 mg 1-05 tablet by ity of tablet 00:00: mouth [place] 00 every 6 Medical (six) Branch hours as needed for Pain (scale 1-3). ibuprofen 2020-0 Yes [id number] 600mg Take 1 Univers 600 mg 1-05 tablet by ity of tablet 00:00: mouth [place] 00 every 6 Medical (six) Branch hours as needed for Pain (scale 1-3). ibuprofen 2020-0 Yes [id number] 600mg Take 1 Univers 600 mg 1-05 tablet by ity of tablet 00:00: mouth [place] 00 every 6 Medical (six) Branch hours as needed for Pain (scale 1-3). ibuprofen 2020-0 Yes [id number] 600mg Take 1 Univers 600 mg 1-05 tablet by ity of tablet 00:00: mouth [place] 00 every 6 Medical (six) Branch hours as needed for Pain (scale 1-3). ibuprofen 2020-0 Yes [id number] 600mg Take 1 Univers 600 mg 1-05 tablet by ity of tablet 00:00: mouth [place] 00 every 6 Medical (six) Branch hours as needed for Pain (scale 1-3). ibuprofen 2020-0 Yes [id number] 600mg Take 1 Univers 600 mg 1-05 tablet by ity of tablet 00:00: mouth [place] 00 every 6 Medical (six) Branch hours as needed for Pain (scale 1-3). ibuprofen 2020-0 Yes [id number] 600mg Take 1 Univers 600 mg 1-05 tablet by ity of tablet 00:00: mouth [place] 00 every 6 Medical (six) Branch hours as needed for Pain (scale 1-3). ibuprofen 2020-0 Yes [id number] 600mg Take 1 Univers 600 mg 1-05 tablet by ity of tablet 00:00: mouth [place] 00 every 6 Medical (six) Branch hours as needed for Pain (scale 1-3). ibuprofen 2020-0 Yes [id number] 600mg Take 1 Univers 600 mg 1-05 tablet by ity of tablet 00:00: mouth [place] 00 every 6 Medical (six) Branch hours as needed for Pain (scale 1-3). docusate 2020-0 Yes [id number] 240mg Take 1 U nivers calcium 240 1-05 capsule by it y of mg capsule 00:00: mouth once [place] 00 daily as Medical needed for Branch Constipati on. HYDROcodone 2020-0 Yes [id number] 1{tbl} Take 1 Univers -acetaminop 1-05 tablet by ity of hen 5-325 00:00: mouth [place] mg tablet 00 every 6 Medical (six) Branch hours as needed for Pain (scale 4-6) (If uncontroll ed by Ibuprofen) . ibuprofen 2020-0 Yes [id number] 600mg Take 1 Univers 600 mg 1-05 tablet by ity of tablet 00:00: mouth [place] 00 every 6 Medical (six) Branch hours as needed for Pain (scale 1-3). simethicone 2020-0 Yes [id number] 160mg Take 2 Univers 80 mg 1-05 tablets by ity of chewable 00:00: mouth [place] tablet 00 after Medical meals and Branch at bedtime as needed for Gas. docusate 2020-0 2020- No [id number] 240mg Take 1 Univers calcium 240 1-05 01-28 capsule by i ty of mg capsule 00:00: 00:00 mouth once [place] 00 :00 daily as Medical needed for Branch Constipati on. HYDROcodone 2020- No [id number] 1{tbl} Take 1 Univers -acetaminop 06-23 tablet by it y of hen 5-325 00:00: 00:00 mouth [place] mg tablet 00 :00 every 6 Medical (six) Branch hours as needed for Pain (scale 4-6) (If uncontroll ed by Ibuprofen) . simethicone 2019- No [id number] 160mg Take 2 Univers 80 mg 06-23 tablets by ity of chewable 00:00: 00:00 mouth [place] tablet 00 :00 after Medical meals and Branch at bedtime as needed for Gas. 2018-06 Yes [id number] 1{packe Take 1 Univers vit 2-05 t} Packet by ity of 33-iron-fol 00:00: mouth [place] ic-dha 00 daily. Medical (SELECT-OB Branch + DHA) 29 mg iron-1 mg -250 mg combo pack 2018-06 Yes [id number] 1{packe Take 1 Univers vit 2-05 t} Packet by ity of 33-iron-fol 00:00: mouth [place] ic-dha 00 daily. Medical (SELECT-OB Branch + DHA) 29 mg iron-1 mg -250 mg combo pack 2018-06 2020- No [id number] 1{packe Take 1 Univers vit 2-05 -28 t} Packet by ity of 33-iron-fol 00:00: 00:00 [place] ic-dha 00 :00 daily. Medical (SELECT-OB Branch + DHA) 29 mg iron-1 mg -250 mg combo pack cyclobenzap 2018-06 Yes [id number] 10mg Take 1 Univers rine 10 mg 1-06 tablet by ity of tablet 00:00: mouth as [place] 00 needed for Medical Muscle Branch Spasms. cyclobenzap 2018-06 Yes [id number] 10mg Take 1 Univers rine 10 mg 1-06 tablet by ity of tablet 00:00: mouth as [place] 00 needed for Medical Muscle Branch Spasms. cyclobenzap 2018-06- No [id number] 10mg Take 1 Univers rine 10 mg 1-06 01-28 tablet by ity of tablet 00:00: 00:00 mouth as [place] 00 :00 needed for Medical Muscle Branch Spasms. metroNIDAZO 2019- No [id number] 500mg Take 1 Univers LE (FLAGYL) 03-06- tablet by it y of 500 mg 00:00: 04:59 mouth 2 [place] tablet 00 :00 (two) Medical times Branch daily for 7 days. Yes [id number] 1{packe Take 1 Univers vit 9-16 t} Packet by ity of 33-iron-fol 00:00: mouth [place] ic-dha 00 daily. Medical (SELECT-OB Branch + DHA) 29 mg iron-1 mg -250 mg combo pack Yes [id number] 1{packe Take 1 Univers vit 9-16 t} [...] 1{tbl} Take 1 Univ ers vitamin 1-14 -16 tablet by ity of w/FA tablet 00:00: 00:00 [place] 00 :00 daily. Medical Branch docusate 2016-06- No 240mg Take 1 Unive rs calcium 240 07-02 capsule by i ty of mg capsule 00:00: 00:00 mouth once [place] 00 :00 daily as Medical needed for Branch Constipati on. ferrous 2016-06 2019- No 325mg Take 1 Univer s sulfate [...] Immunizations Ordered Filled Immunization Date Status Comments [facility] e Immunization Name Name TDAP (ADACEL) 2019-04-24 Completed University of VACCINE 00:00:00 [facility] TDAP (ADACEL) 2019-04-24 Completed University of VACCINE 00:00:00 [facility] TDAP (ADACEL) 2019-04-24 Completed University of VACCINE 00:00:00 [facility] TDAP (ADACEL) 2019-04-24 Completed University of VACCINE 00:00:00 [facility] TDAP (ADACEL) 2019-04-24 Completed University of VACCINE 00:00:00 [facility] TDAP (ADACEL) 2019-04-24 Completed University of VACCINE 00:00:00 [facility] TDAP (ADACEL) 2019-04-24 Completed University of VACCINE 00:00:00 [facility] TDAP (ADACEL) 2019-04-24 Completed University of VACCINE 00:00:00 [facility] TDAP (ADACEL) 2019-04-24 Completed University of VACCINE 00:00:00 [facility] TDAP (ADACEL) 2019-04-24 Completed University of VACCINE 00:00:00 [facility] TDAP (ADACEL) 2019-04-24 Completed University of VACCINE 00:00:00 [facility] Influenza Virus 2019-03-28 Completed Universit y of Vaccine Quad .5 mL 00:00:00 [place] [facility] IM 6+ MO Branch Influenza Virus 2019-03-28 Completed Universit y of Vaccine Quad .5 mL 00:00:00 [place] [facility] IM 6+ MO Branch Influenza Virus 2019-03-28 Completed Universit y of Vaccine Quad .5 mL 00:00:00 [place] [facility] IM 6+ MO Branch Influenza Virus 2019-03-28 Completed Universit y of Vaccine Quad .5 mL 00:00:00 [place] [facility] IM 6+ MO Branch Influenza Virus 2019-03-28 Completed Universit y of Vaccine Quad .5 mL 00:00:00 [place] [facility] 6+ MO Branch Influenza Virus 2019-03-28 Completed Universit y of Vaccine Quad .5 mL 00:00:00 [place] [facility] IM 6+ MO Branch Influenza Virus 2019-03-28 Completed Universit y of Vaccine Quad .5 mL 00:00:00 [place] [facility] 6+ MO Branch Influenza Virus 2019-03-28 Completed Universit y of Vaccine Quad .5 mL 00:00:00 [place] [facility] 6+ MO Branch Influenza Virus 2019-03-28 Completed Universit y of Vaccine Quad .5 mL 00:00:00 [place] [facility] 6+ MO Branch Influenza Virus 2019-03-28 Completed Universit y of Vaccine Quad .5 mL 00:00:00 [place] [facility] 6+ MO Branch Influenza Virus 2019-03-28 Completed Universit y of Vaccine Quad .5 mL 00:00:00 [place] [facility] 6+ MO Branch HPV9 2017-11-15 Completed University of 00:00:00 [facility] HPV9 2017-11-15 Completed University of 00:00:00 [facility] HPV9 2017-11-15 Completed University of 00:00:00 [facility] HPV9 2017-11-15 Completed University of 00:00:00 [place] [facility] HPV9 2017-11-15 Completed University of 00:00:00 [facility] HPV9 2017-11-15 Completed University of 00:00:00 [facility] HPV9 2017-11-15 Completed University of 00:00:00 [facility] HPV9 2017-11-15 Completed University of 00:00:00 [place] [facility] HPV9 2017-11-15 Completed University of 00:00:00 [place] [facility] HPV9 2017-11-15 Completed University of 00:00:00 [place] [facility] HPV9 2017-11-15 Completed University of 00:00:00 [place] [facility] HPV9 2017-11-15 Completed University of 00:00:00 [place] [facility] HPV9 2017-11-15 Completed University of 00:00:00 [place] [facility] HPV9 2017-11-15 Completed University of 00:00:00 [place] [facility] HPV9 2017-07-10 Completed University of 00:00:00 [place] [facility] HPV9 2017-07-10 Completed University of 00:00:00 [place] [facility] HPV9 2017-07-10 Completed University of 00:00:00 [place] [facility] HPV9 2017-07-10 Completed University of 00:00:00 [place] [facility] HPV9 2017-07-10 Completed University of 00:00:00 [place] [facility] HPV9 2017-07-10 Completed University of 00:00:00 [place] [facility] HPV9 2017-07-10 Completed University of 00:00:00 [place] [facility] HPV9 2017-07-10 Completed University of 00:00:00 [place] [facility] HPV9 2017-07-10 Completed University of 00:00:00 [place] [facility] HPV9 2017-07-10 Completed University of 00:00:00 [place] [facility] HPV9 2017-07-10 Completed University of 00:00:00 [place] [facility] HPV9 2017-07-10 Completed University of 00:00:00 [place] [facility] HPV9 2017-07-10 Completed University of 00:00:00 [place] [facility] HPV9 2017-07-10 Completed University of 00:00:00 [place] [facility] HPV9 2017-05-01 Completed University of 00:00:00 [place] [facility] HPV9 2017-05-01 Completed University of 00:00:00 [place] [facility] HPV9 2017-05-01 Completed University of 00:00:00 [place] [facility] HPV9 2017-05-01 Completed University of 00:00:00 [place] [facility] HPV9 2017-05-01 Completed University of 00:00:00 [place] [facility] HPV9 2017-05-01 Completed University of 00:00:00 [place] [facility] HPV9 2017-05-01 Completed University of 00:00:00 [place] [facility] HPV9 2017-05-01 Completed University of 00:00:00 [facility] HPV9 2017-05-01 Completed University of 00:00: [facility] HPV9 2017-05-01 Completed University of 00:00: [facility] HPV9 2017-05-01 Completed University of 00:00:00 [facility] HPV9 2017-05-01 Completed University of 00:00:00 [facility] HPV9 2017-05-01 Completed University of 00:00:00 [facility] HPV9 2017-05-01 Completed University of 00:00:00 [facility] Influenza Virus 2017-03-24 Completed Universit y of Vaccine Quad IM 3+ 00:00:00 [facility] Influenza Virus 2017-03-24 Completed Universit y of Vaccine Quad IM 3+ 00:00:00 [facility] Influenza Virus 2017-03-24 Completed Universit y of Vaccine Quad IM 3+ 00:00:00 [facility] Influenza Virus 2017-03-24 Completed Universit y of Vaccine Quad IM 3+ 00:00:00 [facility] Influenza Virus 2017-03-24 Completed Universit y of Vaccine Quad IM 3+ 00:00:00 [facility] Influenza Virus 2017-03-24 Completed Universit y of Vaccine Quad IM 3+ 00:00:00 [facility] Influenza Virus 2017-03-24 Completed Universit y of Vaccine Quad IM 3+ 00:00:00 [facility] Influenza Virus 2017-03-24 Completed Universit y of Vaccine Quad IM 3+ 00:00:00 [facility] Influenza Virus 2017-03-24 Completed Universit y of Vaccine Quad IM 3+ 00:00:00 [facility] Influenza Virus 2017-03-24 Completed Universit y of Vaccine Quad IM 3+ 00:00:00 [facility] Influenza Virus 2017-03-24 Completed Universit y of Vaccine Quad IM 3+ 00:00:00 [facility] Influenza Virus 2017-03-24 Completed Universit y of Vaccine Quad IM 3+ 00:00:00 [facility] Influenza Virus 2017-03-24 Completed Universit y of Vaccine Quad IM 3+ 00:00:00 [facility] Influenza Virus 2017-03-24 Completed Universit y of Vaccine Quad IM 3+ 00:00:00 [facility] Tdap 2017-02-23 Completed University of 00:00:00 [place] [facility] Tdap 2017-02-23 Completed University of 00:00:00 [place] [facility] Tdap 2017-02-23 Completed University of 00:00:00 [place] [facility] Tdap 2017-02-23 Completed University of 00:00:00 [place] [facility] Tdap 2017-02-23 Completed University of 00:00:00 [place] [facility] Tdap 2017-02-23 Completed [facility] 00:00:00 [facility] Tdap 2017-02-23 Completed [facility] 00:00:00 [facility] TDAP 2017-02-23 Completed [facility] 00:00:00 [facility] TDAP 2017-02-23 Completed [facility] 00:00:00 [facility] TDAP 2017-02-23 Completed [facility] 00:00:00 [facility] TDAP 2017-02-23 Completed [facility] 00:00:00 [facility] Tdap 2017-02-23 Completed [facility] 00:00:00 [facility] Tdap 2017-02-23 Completed [facility] 00:00:00 [facility] Tdap 2017-02-23 Completed [facility] 00:00:00 [facility] Td 2013-02-11 Completed [facility] of 00:00:00 [facility] Td 2013-02-11 Completed [facility] of 00:00:00 [facility] Td 2013-02-11 Completed [facility] 00:00:00 [facility] Td 2013-02-11 Completed [facility] 00:00:00 [facility] Td 2013-02-11 Completed [facility] 00:00:00 [facility] Td 2013-02-11 Completed [facility] 00:00:00 [facility] Td 2013-02-11 Completed [facility] 00:00:00 [facility] Td 2013-02-11 Completed [facility] 00:00:00 [facility] Td 2013-02-11 Completed [facility] 00:00:00 [facility] Td 2013-02-11 Completed [facility] 00:00:00 [facility] Td 2013-02-11 Completed [facility] 00:00:00 [facility] Td 2013-02-11 Completed [facility] 00:00:00 [facility] Td 2013-02-11 Completed [facility] 00:00:00 [facility] Td 2013-02-11 Completed [facility] 00:00:00 [facility] Vital Signs Vital Name Observation Time Observation Value Comments Source Systolic blood 2020-03-13 19:10:00 115 mm[Hg] Univer sity of pressure [facility] Diastolic blood 2020-03-13 19:10:00 77 mm[Hg] Unive rsity of pressure [facility] Heart rate 2020-03-13 19:10:00 88 /min [facility]i [facility] Body temperature 2020-03-13 19:10:00 36.72 Sandie Univ ersity of [facility] Respiratory rate 2020-03-13 19:10:00 18 /min Univ ersity of [facility] Body height 2020-03-13 19:10:00 146.1 cm [facility] Body weight 2020-03-13 19:10:00 61.236 kg [facility] BMI 2020-03-13 19:10:00 28.71 kg/m2 [facility] Systolic blood 2020-03-13 19:10:00 115 mm[Hg] Univer sity of pressure [facility] Diastolic blood 2020-03-13 19:10:00 77 mm[Hg] Unive rsity of pressure [facility] Heart rate 2020-03-13 19:10:00 88 /min [facility]i [facility] Body temperature 2020-03-13 19:10:00 36.72 Sandie Univ ersity of [facility] Respiratory rate 2020-03-13 19:10:00 18 /min Univ ersity of [facility] Body height 2020-03-13 19:10:00 146.1 cm [facility] Body weight 2020-03-13 19:10:00 61.236 kg [facility] BMI 2020-03-13 19:10:00 28.71 kg/m2 [facility] Systolic blood 2019-08-13 16:58:00 120 mm[Hg] Univer sity of pressure [facility] Diastolic blood 2019-08-13 16:58:00 80 mm[Hg] Unive rsity of pressure [facility] Heart rate 2019-08-13 16:58:00 86 /min [facility] Body temperature 2019-08-13 16:58:00 36.17 Sandie Univ ersity of [facility] Respiratory rate 2019-08-13 16:58:00 20 /min Univ ersity of [facility] Body height 2019-08-13 16:58:00 144.8 cm [facility] [place] Body weight 2019-08-13 16:58:00 53.434 kg [facility]i [facility] BMI 2019-08-13 16:58:00 25.49 kg/m2 Universi ty of [facility] Systolic blood 2019-07-16 15:19:00 119 mm[Hg] Univer sity of pressure [facility] Diastolic blood 2019-07-16 15:19:00 76 mm[Hg] Unive rsity of pressure [facility] Heart rate 2019-07-16 15:19:00 69 /min Universi ty of [facility] Body temperature 2019-07-16 15:19:00 36.06 Sandie Univ ersity of [facility] Respiratory rate 2019-07-16 15:19:00 18 /min Univ ersity of [facility] Body height 2019-07-16 15:19:00 144.8 cm Universi ty of [facility] Body weight 2019-07-16 15:19:00 55.157 kg Universi ty of [facility] BMI 2019-07-16 15:19:00 26.31 kg/m2 Universi ty of [facility] Oxygen saturation in 2019-07-16 15:19:00 99 /min [facility] Arterial blood by [facility] Pulse oximetry Branch Systolic blood 2019-03-04 15:52:00 112 mm[Hg] Univer sity of pressure [facility] Diastolic blood 2019-03-04 15:52:00 69 mm[Hg] Unive rsity of pressure [facility] Heart rate 2019-03-04 15:52:00 76 /min Universi ty of [facility] Body temperature 2019-03-04 15:52:00 36.61 Sandie Univ ersity of [facility] Respiratory rate 2019-03-04 15:52:00 20 /min Univ ersity of [facility] Body height 2019-03-04 15:52:00 144.8 cm Universi ty of [facility] Body weight 2019-03-04 15:52:00 53.116 kg Universi ty of [facility] BMI 2019-03-04 15:52:00 25.34 kg/m2 Universi ty of [facility] Procedures Procedure Date / Time Performing Clinician Source Performed ASSIGNMENT OF BENEFITS 2020-03-13 18:59:19 Doctor Unassigned, No [facility] POCT TEST 2019-08-13 16:59:00 Yumiko Hernandez ty of [facility] CONSENT FOR 2019-08-13 06:01:00 Doctor Unassigned, No [facility] CONTRACEPTION [facility] HOSPITAL ADMISSION 2019-06-21 06:01:00 Doctor Unassigned, No Uni versity of [facility] GC & CHLAMYDIA AMPLIFIED 2019-03-04 17:35:00 Steffanie Gilmore Un iversity [facility] GALV ONLY - VAGINAL 2019-03-04 17:35:00 [facility] BY DNA PROBE [facility] POCT TEST 2019-03-04 15:55:00 Steffanie Gilmore [facility] ity Formerly [facility] ASSIGNMENT OF BENEFITS 2019-03-04 14:50:16 Doctor Unassigned, No [facility] Encounters Start End Encounter Admission Attending Care Care Encounter Source Date/Time Date/Time Type Type Clinicians Facility Department ID 2022 2022 Emergency EM [place], HCACL RAJINDER [id number] [facility] 21:53:00 23:34:00 Andres 40 [facility] 2020-09-08 2020-09-08 Patient Darrel [facility] 1.2.840.114 [id number] Univers 00:00:00 00:00:00 Outreach Carmelo PRIMARY 350.1.13.[address] [facility] [place]7.2.[place] [id number] Wy dical [address] Branch 2020-09-08 2020-09-08 Patient Darrel PACOURTNEY 1.2.840.114 [id number] 00:00:00 00:00:00 Outreach Carmelo PRIMARY 350.1.13.10 [place] CARE 4.2.7.2.686 PAVILLION [id number] 2020-03-13 2020-03-13 Office Ad [facility] 1.2.840.114 [id number] Univers 13:59:31 15:02:02 Visit Carie Gallegos Dominic 350.1.13.10 it[place] Profess[place] [phone] Wy dical nal [address] 2020-03-13 2020-03-13 Office [facility] 1.2.840.114 [id number] 13:59:31 15:02:02 Visit Carie Gallegos [place] 350.1.13.10 [place] 4.2.7.2.686 [facility] [phone] [address] 2020-03-13 2020-03-13 Outpatient R [facility] [id number] Univers 14:30:00 14:30:00 CARIE renteria [facility] 2020-03-13 2020-03-13 Orders Doctor JO-ANN 1.2.840.114 [id number] Univers 00:00:00 00:00:00 Only Unassigned, MICHELLE 350.1.13.10 ity of [place] [facility] 4.2.7.2.686 Jose G as [phone] [address] 2020-03-05 2020-03-05 Outpatient R [facility] [id number] Univers 14:30:00 14:30:00 CARIE renteria [facility] 2019-08-16 2019-08-16 Telephone [facility] [id number] Univers 00:00:00 00:00:00 Yumiko HEALTHCARE ECONOMICS MANAGER 350.1.13.10 it y of [facility] 4.2.7.2.686 Jose G as MATERNAL [phone] Med ical & CHILD [address] [place] [address] 2019-08-13 2019-08-13 Office [facility] 1.2.840.114 [id number] Univers 10:00:54 11:49:12 Visit Yumiko HEALTHCARE ECONOMICS MANAGER 350.1.13.10 it y of [facility] 4.2.7.2.686 Jose G as MATERNAL [phone] Med ical & CHILD [address] [place] [address] 2019-08-13 2019-08-13 Outpatient R [facility] [id number] Univers 10:15:00 10:15:00 YUMIKO renteria [facility] 2019-08-13 2019-08-13 Orders Doctor BUSCH 1.2.840.114 [id number] Univers 00:00:00 00:00:00 Only Unassigned, MICHELLE 350.1.13.10 ity of [place] [facility] 4.2.7.2.686 Jose G as [id number] [address] 2019-07-16 2019-07-16 Routine Nguyen [facility] 1.2.840.114 [id number] Univers 09:03:15 10:10:12 Kira L HEALTHCARE ECONOMICS MANAGER 350.1.13.10 i ty of Visit REGIONAL 4.2.7.2.686 Jose G as MATERNAL [phone] Med ical & CHILD [address] [facility] 2019-07-08 2019-07-08 Nurse JO-ANN Wright 1.2.840.114 [id number] Univers 00:00:00 00:00:00 Triage Lynnette MICHELLE 350.1.13.10 it y of HOSPITAL 4.2.7.2.686 Jose G as [id number] [facility] [address] [place] 2019-06-21 2019-06-21 Orders Doctor JO-ANN 1.2.840.114 [id number] Univers 00:00:00 00:00:00 Only Unassigned, MICHELLE 350.1.13.10 ity of [place] [facility] 4.2.7.2.686 Jose G as [phone] [address] 2019-03-06 2019-03-06 Telephone Mando [facility] 1.2.840.114 [id number] Univers 00:00:00 00:00:00 Steffanie HEALTHCARE ECONOMICS MANAGER 350.1.13.10 it y of REGIONAL 4.2.7.2.686 Jose G as MATERNAL [phone] [facility] & CHILD [address] [place] [address] 2019-03-04 2019-03-04 Initial Mando [facility] 1.2.840.114 [id number] Univers 10:14:14 12:02:10 Steffanie HEALTHCARE ECONOMICS MANAGER 350.1.13.10 i ty of Visit REGIONAL 4.2.7.2.686 Jose G as MATERNAL [phone] [facility] & CHILD [address] [place] [address] 2019-03-04 2019-03-04 Orders Doctor JO-ANN 1.2.840.114 [id number] Univers 00:00:00 00:00:00 Only Unassigned, MICHELLE 350.1.13.10 ity of [place] [facility] 4.2.7.2.686 Jose G as [phone] [address] Results Test Description Test Time Test Comments Results Result Comments Source INFLUENZA A B 2022 23:31:00 Test Item Value Reference Range Interpretation Comme nts INFLUENZA A (test code = FLUAPCR) Negative Negative INFLUENZA B (test code = FLUBPCR) Negative Negative POCT [id number] 17:00:00 Test Item Value Reference Range Interpretation Comments POCT PREG (test code = 1605) Negative On board controls acceptable with Yes C Line (test code = 3574) POCT PREG LOT # (test code = 3575) [id number] POCT PREG TEST DATE (test 01/16/2021 code = 3576) [id number] 17:00:00 Test Item Value Reference Range Interpretation Comments POCT PREG (test code = 1605) Negative On board controls acceptable with Yes C Line (test code = 3574) POCT PREG LOT # (test code = 3575) [id number] POCT PREG TEST DATE (test 01/16/2021 code = 3576) [facility]ENS BY DNA PROBE 2019-03-05 19:38:00 Test Item Value Reference Range Interpretation Comments Trichomonas vaginalis Negative Negative (test code = 8688950881) Gardnerella vaginalis Positive Negative A The pr esence of (test code = 9650264283) Gar dnerella vaginalis although sugges tive, is not diagnost ic of Bacterial Vagin osis. Yue species (test Negative Negative code = 6341217551) Lab Interpretation (test Abnormal code = 41910-5) [facility] CHLAMYDIA AMPLIFIED [id number] 18:19:00 Test Item Value Reference Range Interpretation Comments Lab Interpretation (test code = Normal 46043-7) [facility] [id number] 15:55:00 Test Item Value Reference Range Interpretation Comments POCT PREG (test code = 1605) Positive On board controls acceptable with C Yes Line (test code = 3574) POCT PREG LOT # (test code = 3575) POCT PREG TEST DATE (test code = 3576) [facility] [id number] 17:34:00 Test Item Value Reference Range Interpretation [...] FEW A MUCU) Urine Source? Clean CatchURINALYSIS [id number] 17:17:00 Test Item Value Reference Range Interpretation [...] BACU) Urine Source? Clean Catch- DUP AB/PEL/SC [id number] 16:46:00 Name: DARRELL SAWANT [facility] : 1995 Age/S: 23 / F [address] [facility] Unit #: [id number] Loc: [place] [address] Phys: Maryan Lay NP Acct: [id number] Dis Date: Status: REG ER PHONE #: [phone] Exam Date: 12/11/2018 1630 FAX #: [phone] Reason: PELVIC PAIN EXAMS: CPT CODE: [id number] DUP AB/PEL/SC COMP 13740 REASON FOR EXAM: VAGINAL BLEEDING/PELVIC PAIN EXAM ORDER DATE: 12/11/2018 4:05 PM Attending M.Michelle.: Maryan Lay NP PROCEDURE: - US PREG [...] Susy Bonilla RDMS Trnscb Date/Time: 12/11/2018 (1645) t.PAVANR.VTL Orig Print D/T: S: 12/11/2018 (3688) Probe: PAGE1 Signed Report- US PREG 1ST TRIMTR 2018-12-11 16:46:00 Name: DARRELL SAWANT [facility] : 1995 Age/S: 23 / F [address] [facility] Unit #: [id number]: [place] [address] Phys: Maryan Lay NP Acct: [id number] Dis Date: Status: REG ER PHONE #: [phone] Exam Date: 12/11/2018 1630 FAX #: [phone] Reason: VAGINAL BLEEDING/PELVIC PAIN EXAMS: CPT CODE: [id number] US PREG 1ST TRIMTR 40106 REASON FOR EXAM: VAGINAL BLEEDING/PELVIC PAIN EXAM [...] rate is 1 69 bpm. The right ovarymeasured 2.7 x 1.9 cm. The left ovary [...] Maryan Lay NP; Mainor Raygoza MD Technologist: JOSY Powers Trnscb Date/Time: 12/11/2018 (1645) t.PAVANR.VTL Orig Print D/T: S: 12/11/2018 (0786) Probe: PAGE 1 Signed ReportHCG SERUM [id number] 16:18:00 Test Item Value Reference Range Interpretation Comments HCG SERUM BETA 30647.0 mIU/mL 0-3 H Interfering substances (test code [...] AFTER CO NCEPTION 10,000-100,000 MIU/ML BASIC METABOLIC [id number] 14:59:00 Test Item Value Reference Range Interpretation [...] 8.6 mg/dL 8.5-10.1 N CA) HCG SERUM [id number] 14:59:00 Test Item Value Reference Range Interpretation Comments HCG SERUM QUAL (test POSITIVE NEGATIVE A This HC GQL test is NOT code = HCGQL) applicable for MALE patients.Check with nurse about probable order error.If Tumor Marker Test needed, nu rse should order test "HCG TU"(Test #550.23584)---- - [id number] 14:59:00 Test Item Value Reference Range Interpretation Comments TROPONIN-I (test code = TROPI) <0.015 ng/mL 0-0.045 N BASIC METABOLIC [id number] 14:53:00 Test Item Value Reference Range Interpretation [...] code = CA) mg/dL 8.5-10.1 HCG SERUM [id number] 14:53:00 Test Item Value Reference Range Interpretation Comments HCG SERUM QUAL (test POSITIVE NEGATIVE A This HC GQL test is NOT code = HCGQL) applicable for MALE patients.Check with nurse about probable order error.If Tumor Marker Test needed, nu rse should order test "HCG TU"(Test #550.74335)---- - [id number] 14:53:00 Test Item Value Reference Range Interpretation Comments TROPONIN-I (test code = TROPI) ng/mL 0-0.045 BASIC METABOLIC [id number] 14:51:00 Test Item Value Reference Range Interpretation [...] code = CA) mg/dL 8.5-10.1 HCG SERUM [id number] 14:51:00 Test Item Value Reference Range Interpretation Comments HCG SERUM QUAL (test code = HCGQL) NEGATIVE [id number] 14:51:00 Test Item Value Reference Range Interpretation Comments TROPONIN-I (test code = TROPI) ng/mL 0-0.045 CBC W/O [id number] 14:44:00 Test Item Value Reference Range Interpretation [...] code fL 6.7-11.0 = MPV) CBC W/O [id number] 14:44:00 Test Item Value Reference Range Interpretation [...] Note Provider Source 2022 22:22:00-00:00 [facility] ([facility] EMERGENCY PROVIDER REPORT REPORT#:[id number] REPORT STATUS: Signed DATE:07/31/22 TIME: 2221 PATIENT: DARRELL SAWANT UNIT #: [id number] ROOM/BED: AGE: 27 SEX: F PCP PHYS: No Primary or Family Ph ysician SERVICE AUTHOR: Fahad Johnson * ALL edits or amendments must be made on the Swyft/computer document * Fahad Johnson 07/31/222221: HPI-General Illness [...] 07/31 2209 Pulse 75 07/31 2209 Resp 07/31 Last Documented: Result Date Time Pulse Ox 99 07/31 2209 B/P 118/76 07/31 2209 B/P Mean 90 07/31 2209 O2 Delivery Room air 07/31 2209 Temp 36.7 07/31 2209 Pulse 75 07/31 2209 Resp 07/31 Review of Vital Signs Reviewed Physical Exam [...] al pharyngitis Re-Evaluation/Progress #1 Time of Re-Eval 2323 Re-Eval Status Improved Eval Following Treatment Pt. feels better, Condi tion improved Pain Re-Evaluation Denies pain ED Course Medication(s) Ordered Medication(s) Ordered: Central Nervous System Agents Sig/Zain Start time Last Medication Dose Route Stop Time Status Admin Acetaminophen 500 MG X1ED STA 07/31 2202 DC PO 07/31 Naproxen 500 MG X1ED STA 07/31 2202 DC 07/31 PO 07/31 2203 225 Patient Discharge Departure Vital Signs/Condition Vital Signs [...] )( Discharged to Home Yes )( Time 2324 )( Date 07/31/22 Discharge/Care Plan Counseled Regarding [...] Provider Referral: Gagandeep Hylton MD Address: [address] [facility] [facility] [address] [place] [address] Provider Referral: Enedina Avila DO Address: [address] [place] [address] Provider Referral: Gurinder Drummond MD Address: [address] [facility] [place] [address] Provider Referral: Jeff Blanc DO Address: [address] [facility] [place] [address] Provider Referral: Shaggy eHlm III, MD Address: [address] [facility] [address] [place] [address] Provider Referral: Araceli Pimentel MD Follow-Up: 2-3 Days Address: [address] [place] [address]. [address] [place] [phone] Supervising Physician Note MidLv Saw Pt Alone I have reviewed the PA/INSIDE SALES TRAINER's note and plan of car e. I was available for consultation as needed at al l times during the patient's visit in the emergency department. I agree with the clinical impression , plan and disposition. Electronically Signed by Fahad Johnson on at 0014 Electronically Signed by Andres Alcala MD on 07/20 09/08 at 0336 RPT #:[id number] END OF REPORT 2018-12-11 14:26:00-00:00 [facility] ([facility]) EMERGENCY PROVIDER REPORT REPORT#:[id number] REPORT STATUS: Signed DATE:12/11/18 TIME: 6 PATIENT: DARRELL SAWANT UNIT #: [id number] ROOM/BED: AGE: 23 SEX: F PCP PHYS: DOES_NOT KNOW SERVICE AUTHOR: Maryan Lay INSIDE SALES TRAINER * ALL edits or amendments must be made on the Swyft/computer document * HPI-Dizziness/Weakness General Confirmed Patient Yes [...] HCG Beta Subunit (0 - 3 mIU/mL) 27125.0 H Urines Urine Color (YELLOW) YELLOW Urine Appearance (CLEAR) CLEAR Urine pH (5.0 - 8.0) 6.0 Ur Specific [place] (1.001 - 1.035) 1.032 Urine Protein (NEGATIVE [...] verbalized understanding. Patient was provided with [facility] resources where she can follow up within the next 24 to 48 hours for further evaluation. Farzana nimisha was also provided with a referral to Dr. Robles ob, for further evaluation. Patient verbalized understanding. Additional Text I reevaluated patient prior to discharge, maile morris in no nad. Re-Evaluation/Progress #1 Time of [...] symptoms should prompt an immediate return to [facility] or the closest emergency department or [...] Lay NP on 12/11 at 1922 RPT #:[id number] END OF REPORT 2018-12-11 14:26:00-00:00 [facility] ([facility]) EMERGENCY PROVIDER REPORT REPORT#:[id number] REPORT STATUS: Signed DATE:12/11/18 TIME: 1426 PATIENT: DARRELL SAWANT UNIT #: [id number] ROOM/BED: AGE: 23 SEX: F PCP PHYS: DOES_NOT KNOW SERVICE AUTHOR: Maryan Lay INSIDE SALES TRAINER * ALL edits or amendments must be made on the Swyft/computer document * Maryan Lay 12/11/18 1426: HPI-Dizziness/Weakness General Confirmed Patient Yes [...] Documented: Result Date Time B/P 124/65 12/11 183 B/P Mean 84 12/11 183 Temp 37.2 12/11 1831 Pulse 87 12/11 [...] NL Resp/Chest Respiratory/Chest Breath sounds NL, Breath marilia nds = bilat, No respiratory distress, No rales, [...] HCG Beta Subunit (0 - 3 mIU/mL) 01343.0 H Urines Urine Color (YELLOW) YELLOW Urine Appearance (CLEAR) CLEAR Urine pH (5.0 - 8.0) 6.0 Ur Specific [place] (1.001 - 1.035) 1.032 Urine Protein (NEGATIVE [...] Patient verbalized understanding. Patient was provided with [facility] resources where she can follow up within the next 24 to 48 hours for further evaluation. Farzana ent was also provided with a referral to Dr. Robles ob, for further evaluation. Patient verbalized understanding. Additional [...] have explained the patient's condition, diagnoses and hsantelle atment plan based on the information available [...] physician or other designated or consulting phys heavenlyan as outlined in the discharge instructions. The [...] symptoms should prompt an immediate return to [facility] or the closest emergency department or [...] plan for smokin g cessation. Mainor Raygoza 12/11/181931: HPI-Dizziness/Weakness General Initial Greet Date/Time 12/11/18 1420 Physical Exam Vital Signs Vital Signs Interpretation Diagnostics Lab Results Interpretation Results Re-Evaluation [facility] ED Course Medication(s) Ordered Patient Discharge Departure Vital Signs/Condition Vital Signs Supervising Physician Note MidLv Saw Pt Alone I have reviewed the PA/INSIDE SALES TRAINER's note and plan of car e. I was available for consultation as needed at al l times during the patient's visit in the emergency department. I agree with the clinical impression , plan and disposition. Electronically Signed by Maryan Lay NP on 12/11 at 1922 at 1932 RPT #:[id number] END OF REPORT
--- NOTE | 2023-02-18 12:14 | EDPHYS ---
Physician Documentation [facility] Name: Camilla Sawant Age: 27 yrs Sex: Female : 1995 Arrival Date: 02/18/2023 Time: 10:49 Bed DIS5 Private MD: ED Physician Ray White HPI: 02/18 12:11 This 27 yrs old Female presents to ER via Ambulatory with complaints of Sore kb Throat, Congestion. 12:11 The patient presents with sore throat. The patient describes throat pain as constant. kb Onset: The symptoms/episode began/occurred today. Severity of symptoms: At their worst the symptoms were mild, in the emergency department the symptoms are unchanged. Modifying factors: The symptoms are alleviated by nothing, the symptoms are aggravated by nothing, Patient's oral intake status: good. Associated signs and symptoms: Pertinent positives: Sore throat Pertinent negatives fever. The patient has not experienced similar symptoms in the past. The patient has not recently seen a physician. Patient reports sore throat that started today. States she was bringing her kids for similar symptoms so she wanted to get evaluated as well.. HOMEBIRTH MIDWIFE: 11:04 LMP N/A - mb9 Historical: - Allergies: 11:03 No Known Allergies; mb9 - PMHx: 11:03 Anxiety; Bipolar disorder; depressive disorder; mb9 - PSHx: 11:03 None; mb9 - Immunization history:: Adult Immunizations up to date. - Social history:: Smoking status: Patient denies any tobacco usage or history of. ROS: 12:11 Constitutional: Negative for fever, chills, and weight loss. kb 12:11 ENT: Positive for sore throat. 12:11 All other systems are negative. Exam: 12:11 Constitutional: This is a well developed, well nourished patient who is awake, alert, kb and in no acute distress. Head/Face: Normocephalic, atraumatic. ENT: Moist Mucous membranes Cardiovascular: Regular rate and rhythm with a normal S1 and S2. No gallops, murmurs, or rubs. No pulse deficits. Respiratory: Respirations even and unlabored. No increased work of breathing. Talking in full sentences Skin: Warm, dry with normal turgor. Normal color. MS/ Extremity: Pulses equal, no cyanosis. Neurovascular intact. Full, normal range of motion. Neuro: Awake and alert, GCS 15, oriented to person, place, time, and situation. Moves all extremities. Normal gait. 12:11 ENT: Posterior pharynx: erythema, that is mild. Vital Signs: 11:02 BP 115 / 83; Pulse 81; Resp 18; Temp 97.9; Pulse Ox 100% ; Weight 67.13 kg; Height 5 mb9 ft. 3 in. ; 11:02 Body Mass Index 26.22 (67.13 kg, 160.02 cm) mb9 MDM: 10:55 Patient medically screened. kb 12:12 Differential diagnosis: Flu, strep, COVID, pharyngitis. Data reviewed: vital signs, kb nurses notes. Counseling: I had a detailed discussion with the patient and/or guardian regarding the historical points, exam findings, and any diagnostic results supporting the discharge/admit diagnosis, lab results, the need for outpatient follow up, a family practitioner, to return to the emergency department if symptoms worsen or persist or if there are any questions or concerns that arise at home. 02/18 11:02 Order name: Flu; Complete Time: 12:04 kb 02/18 11:02 Order name: Strep 02/18 11:02 Order name: SARS-COV-2 RT PCR; Complete Time: 12:12 kb 02/18 11:53 Order name: Throat Culture EDMS Administered Medications: No medications were administered Disposition Summary: 02/18/23 12:13 Discharge Ordered Location: Home kb Condition: Stable kb Diagnosis - Pain in throat kb Followup: kb - With: Private Physician - When: 2 - 3 days - Reason: Recheck today's complaints, Continuance of care, Re-evaluation by your physician Followup: kb - With: Emergency Department - When: As needed - Reason: Worsening of condition Discharge Instructions: - Discharge Summary Sheet kb - Sore Throat, [id number] kb Forms: - Medication Reconciliation Form kb - Thank You Letter kb - Antibiotic Education kb - Prescription Opioid Use kb - Patient Portal Instructions kb - Leadership Thank You Letter kb Signatures: Dispatcher [employer] EDMS Maegan Hawkins FNP-C FNP-Ckb Breneman, Mary Beth RN RN mb9
--- NOTE | 2023-02-18 12:14 | ER ---
Nurse's Notes [facility] Name: Camilla Sawant Age: 27 yrs Sex: Female : 1995 Arrival Date: 02/18/2023 Time: 10:49 Bed DIS5 Private MD: Diagnosis: Pain in throat Presentation: 02/18 11:02 Chief complaint: Patient states: "I started having a sore throat yesterday". mb9 Coronavirus screen: Vaccine status: Patient reports being unvaccinated. Ebola Screen: No symptoms or risks identified at this time. Initial Sepsis Screen: Does the patient meet any 2 criteria? No. Patient's initial sepsis screen is negative. Does the patient have a suspected source of infection? No. Patient's initial sepsis screen is negative. Risk Assessment: Do you want to hurt yourself or someone else? Patient reports no desire to harm self or others. Onset of symptoms was February 18, 2023. 11:02 Method Of Arrival: Ambulatory mb9 11:02 Acuity: WILMER 4 mb9 Triage Assessment: 11:03 General: Appears in no apparent distress. Behavior is calm, cooperative. Pain: Denies mb9 pain. EENT: Throat is reddened. Neuro: Level of Consciousness is awake, alert, obeys commands, Oriented to person, place, time, situation, Appropriate for age. Respiratory: Airway is patent Respiratory effort is even, unlabored, Respiratory pattern is regular, symmetrical. Derm: Skin is pink, warm \\T\\ dry. Musculoskeletal: Range of motion: intact in all extremities. [employer]: 11:04 LMP N/A - mb9 Historical: - Allergies: 11:03 No Known Allergies; mb9 - PMHx: 11:03 Anxiety; Bipolar disorder; depressive disorder; mb9 - PSHx: 11:03 None; mb9 - Immunization history:: Adult Immunizations up to date. - Social history:: Smoking status: Patient denies any tobacco usage or history of. Screenin:56 [facility] ED Fall Risk Assessment (Adult) History of falling in the last 3 months, mb9 including since admission No falls in past 3 months (0 pts) Confusion or Disorientation No (0 pts) Intoxicated or Sedated No (0 pts) Impaired Gait No (0 pts) Mobility Assist Device Used No (0 pt) Altered Elimination No (0 pt) Score/Fall Risk Level 0 - 2 = Low Risk Oriented to surroundings, Maintained a safe environment, Educated pt \\T\\ family on fall prevention, incl call for assistance when getting out of bed. Abuse screen: Denies threats or abuse. Nutritional screening: No deficits noted. Tuberculosis screening: No symptoms or risk factors identified. Assessment: 11:03 Reassessment: see triage assessment. mb9 12:15 Reassessment: Patient appears in no apparent distress at this time. Patient and/or hb family updated on plan of care and expected duration. Pain level reassessed. Patient is alert, oriented x 3, equal unlabored respirations, skin warm/dry/pink. Vital Signs: 11:02 BP 115 / 83; Pulse 81; Resp 18; Temp 97.9; Pulse Ox 100% ; Weight 67.13 kg; Height 5 mb9 ft. 3 in. ; 11:02 Body Mass Index 26.22 (67.13 kg, 160.02 cm) mb9 ED Course: 10:53 Patient arrived in ED. im 10:55 Maegan Hawkins FNP-C is [facility]. kb 10:55 Ray White MD is Attending Physician. kb 10:56 Arm band placed on. mb9 11:02 Triage completed. mb9 11:03 Placed in gown. Bed in low position. Call light in reach. Side rails up X 1. Client mb9 placed on continuous cardiac and pulse oximetry monitoring. NIBP monitoring applied. chemical plant worker on. 11:29 Melida Del Toro, RN is Primary Nurse. hb 11:29 SARS-COV-2 RT PCR Sent. hb 11:29 Strep Sent. hb 11:29 Flu Sent. hb 12:46 Provided Education on: . hb 12:46 No provider procedures requiring assistance completed. Patient did not have IV access hb during this emergency room visit. Administered Medications: No medications were administered Medication: 11:04 VIS not applicable for this client. mb9 Outcome: 12:13 Discharge ordered by . kb 12:46 Discharged to home via ambulance. hb 12:46 Condition: stable 12:46 Discharge instructions given to patient, Instructed on discharge instructions, follow up and referral plans. medication usage, Demonstrated understanding of instructions, follow-up care, medications. 12:46 Patient left the ED. hb Signatures: Maegan Hawkins FNP-C FNP-Ckb Baxter, Heather, RN RN hb Stephany, Giovana Hi, RN RN mb9 Catalina Landry
[2023-02-18 13:13] VITALS: BP 115/83; TEMP 97.9; O2SAT 100
== END 2023-02-18 12:46 | disposition home or self-care (01) ==
LOC: ER 10:49
DX: R07.0 Pain in throat (principal); Z20.822 Contact with and (suspected) exposure to COVID-19
CPT/HCPCS: 87070; 87081; 87635; 87804; 99284